=== PATIENT | female | born 1950 | race Caucasian/White ===

== ENCOUNTER → 2019-06-27 11:49 | Outpatient (BNVA) | payer MEDICARE, MEDICAID, SELFPAY | PROVIDERS: Family Provider Nurse Practitioner; PCP Nurse Practitioner; Visit Provider Nurse Practitioner | DX: E11.42 Type 2 diabetes mellitus with diabetic polyneuropathy (principal); E78.2 Mixed hyperlipidemia; F41.9 Anxiety disorder, unspecified; N18.3 Chronic kidney disease, stage 3 (moderate); G57.92 Unspecified mononeuropathy of left lower limb | CPT/HCPCS: 80053; 80069; 81003; 82044; 82306; 82570; 83036; 84156; 84443; 85025 ==

== ENCOUNTER → 2019-08-13 12:39 | Outpatient (BNVA) | payer MEDICARE, MEDICAID, SELFPAY | PROVIDERS: Family Provider Nurse Practitioner; PCP Nurse Practitioner; Visit Provider Nurse Practitioner | DX: F33.41 Major depressive disorder, recurrent, in partial remission (principal); F43.12 Post-traumatic stress disorder, chronic; F41.9 Anxiety disorder, unspecified | CPT/HCPCS: 99213 ==

== ENCOUNTER → 2019-09-26 14:30 | Outpatient (BNVA) | payer MEDICARE, MEDICAID, SELFPAY | PROVIDERS: Family Provider Nurse Practitioner; PCP Nurse Practitioner; Visit Provider Nurse Practitioner | DX: E78.2 Mixed hyperlipidemia (principal); E55.9 Vitamin D deficiency, unspecified; E11.42 Type 2 diabetes mellitus with diabetic polyneuropathy | CPT/HCPCS: 80053; 80061; 82306; 83036; 84443 ==

== ENCOUNTER → 2019-11-05 07:43 | Outpatient (BNVA) | payer MEDICARE, MEDICAID, SELFPAY | PROVIDERS: Family Provider Nurse Practitioner; PCP Nurse Practitioner; Visit Provider Nurse Practitioner | DX: F33.41 Major depressive disorder, recurrent, in partial remission (principal); F43.12 Post-traumatic stress disorder, chronic; F41.1 Generalized anxiety disorder | CPT/HCPCS: 99213 ==

== ENCOUNTER → 2019-12-05 10:23 | Outpatient (BNVA) | payer MEDICARE, MEDICAID, SELFPAY | PROVIDERS: Family Provider Nurse Practitioner; PCP Nurse Practitioner; Visit Provider Internal Medicine Nephrology | DX: N18.3 Chronic kidney disease, stage 3 (moderate) (principal); Z94.0 Kidney transplant status | CPT/HCPCS: 80069; 82306; 82310; 82570; 83970; 84156; 85025 ==

== ENCOUNTER → 2019-12-24 11:03 | Outpatient (BNVA) | payer MEDICARE, MEDICAID, SELFPAY | PROVIDERS: Family Provider Nurse Practitioner; PCP Nurse Practitioner; Visit Provider Nurse Practitioner | DX: E03.8 Other specified hypothyroidism (principal); E11.42 Type 2 diabetes mellitus with diabetic polyneuropathy; E78.2 Mixed hyperlipidemia; N18.3 Chronic kidney disease, stage 3 (moderate) | CPT/HCPCS: 80053; 83036; 84443 ==

== ENCOUNTER → 2019-12-26 15:25 | Outpatient (BNVA) | payer MEDICARE, MEDICAID, SELFPAY | PROVIDERS: Family Provider Nurse Practitioner; PCP Nurse Practitioner; Visit Provider Nurse Practitioner | DX: E11.42 Type 2 diabetes mellitus with diabetic polyneuropathy (principal); F41.9 Anxiety disorder, unspecified; E78.2 Mixed hyperlipidemia; E03.8 Other specified hypothyroidism; K21.9 Gastro-esophageal reflux disease without esophagitis | CPT/HCPCS: 81000 ==

== ENCOUNTER → 2020-01-29 08:33 | Outpatient (BNVA) | payer MEDICARE, MEDICAID, SELFPAY | PROVIDERS: Family Provider Nurse Practitioner; PCP Nurse Practitioner; Visit Provider Nurse Practitioner | DX: F43.12 Post-traumatic stress disorder, chronic (principal); F33.41 Major depressive disorder, recurrent, in partial remission | CPT/HCPCS: 99213 ==

== ENCOUNTER → 2020-03-19 11:15 | Outpatient (BNVA) | payer MEDICARE, MEDICAID, SELFPAY | PROVIDERS: Family Provider Nurse Practitioner; PCP Nurse Practitioner; Visit Provider Nurse Practitioner | DX: E11.65 Type 2 diabetes mellitus with hyperglycemia (principal); Z79.4 Long term (current) use of insulin; E03.8 Other specified hypothyroidism; E78.2 Mixed hyperlipidemia; E55.9 Vitamin D deficiency, unspecified; E11.22 Type 2 diabetes mellitus with diabetic chronic kidney disease; N18.30 Chronic kidney disease, stage 3 unspecified | CPT/HCPCS: 80053; 80061; 80069; 82306; 82310; 83036; 83970; 84443; 85025 ==

== ENCOUNTER → 2020-04-01 14:23 | Outpatient (BNVA) | payer MEDICARE, MEDICAID, SELFPAY | PROVIDERS: Family Provider Nurse Practitioner; PCP Nurse Practitioner; Visit Provider Nurse Practitioner Family | DX: E13.22 Other specified diabetes mellitus with diabetic chronic kidney disease; N18.30 Chronic kidney disease, stage 3 unspecified; E03.8 Other specified hypothyroidism; E11.65 Type 2 diabetes mellitus with hyperglycemia; E78.2 Mixed hyperlipidemia; Z79.4 Long term (current) use of insulin; E11.42 Type 2 diabetes mellitus with diabetic polyneuropathy; K21.9 Gastro-esophageal reflux disease without esophagitis; F41.9 Anxiety disorder, unspecified; E55.9 Vitamin D deficiency, unspecified; M62.838 Other muscle spasm; J30.89 Other allergic rhinitis; I12.9 Hypertensive chronic kidney disease with stage 1 through stage 4 chronic kidney disease, or unspecified chronic kidney disease | CPT/HCPCS: 80069; 81000; 82043; 82310; 83970; 85025 ==

== ENCOUNTER → 2020-04-21 14:44 | Outpatient (BNVA) | payer MEDICARE, MEDICAID, SELFPAY | PROVIDERS: Family Provider Nurse Practitioner; PCP Nurse Practitioner; Visit Provider Internal Medicine Nephrology | DX: N18.4 Chronic kidney disease, stage 4 (severe) (principal) | CPT/HCPCS: 80048 ==

== ENCOUNTER 2020-04-28 12:53 | Outpatient (CLI) | payer MEDICARE, MEDICAID, SELFPAY ==
--- NOTE | 2020-04-28 | CT_ITS ---
WS: [id number] CT ABDOMEN AND PELVIS NONCONTRAST HISTORY: CHRONIC KIDNEY DISEASE TECHNIQUE: Imaging performed through the abdomen and pelvis. Coronal and sagittal reformats are submi tted. All CT scans at [facility] use at least one of these dose optimization techniques: automated exposure control; mA and/or kV adjustment per patient size (includes targeted exams where d ose is matched to clinical indication); or iterative reconstruction. DLP: 1231.85 mGycm COMPARISON: 11/08/2017 Lower thorax: Lung bases are clear. Visualized heart is normal. No hiatal hernia. Liver: Mild hepatomegaly and mild hepatic steatosis. No mass or bile duct dilatation. Gallbladder: Prior cholecystectomy. Pancreas: Normal size and attenuation. Normal pancreatic duct. No pancreatitis or mass. Spleen: Normal size spleen with granulomata. Adrenal glands: Normal. No mass. Right kidney: Normal size kidney with no mass or hydronephrosis. Left kidney: Normal size kidney with no mass or hydronephrosis. Aorta: Very mild atherosclerosis. No aneurysm. No free fluid, intraperitoneal air or significant lymphadenopathy. GI tract: Prior appendectomy. No GI tract obstruction. There are a few skin diverticula in the sigmoi d colon without acute inflammation. No obstructive pattern. Abdominal wall: Negative. No hernia. Pelvis: Normal urinary bladder. No free fluid. Osseous structures: Degenerative disc disease is mild at L4-5. CT/CT kidney stone [id number] IMPRESSION: 1. No acute abdominal or pelvic abnormalities. 2. No renal obstruction. 3. Prior cholecystectomy and appendectomy. 4. Sigmoid diverticulosis without diverticulitis.
== END 2020-04-28 12:54 | disposition home or self-care (01) ==
LOC: RADWPI 12:57
PROVIDERS: PCP Nurse Practitioner; Visit Provider Registered Nurse
DX: N18.4 Chronic kidney disease, stage 4 (severe) (principal); K57.30 Diverticulosis of large intestine without perforation or abscess without bleeding; Z90.49 Acquired absence of other specified parts of digestive tract; Q42.8 Congenital absence, atresia and stenosis of other parts of large intestine
CPT/HCPCS: 74176

== ENCOUNTER → 2020-07-06 11:08 | Outpatient (BNVA) | payer MEDICARE, MEDICAID, SELFPAY | PROVIDERS: PCP Nurse Practitioner; Visit Provider Nurse Practitioner | DX: E78.5 Hyperlipidemia, unspecified (principal); E11.65 Type 2 diabetes mellitus with hyperglycemia; E03.8 Other specified hypothyroidism; E55.9 Vitamin D deficiency, unspecified; I10 Essential (primary) hypertension; Z79.4 Long term (current) use of insulin | CPT/HCPCS: 80053; 80061; 82306; 83036; 84443; 85025 ==

== ENCOUNTER → 2020-07-28 11:36 | Outpatient (BNVA) | payer MEDICARE, MEDICAID, SELFPAY | PROVIDERS: PCP Nurse Practitioner; Visit Provider Nurse Practitioner | DX: N18.4 Chronic kidney disease, stage 4 (severe) (principal) | CPT/HCPCS: 80069; 82043; 82306; 82310; 83970; 85025 ==

== ENCOUNTER → 2020-09-10 14:00 | Outpatient (BNVA) | payer MEDICARE, MEDICAID, SELFPAY | PROVIDERS: PCP Nurse Practitioner; Visit Provider Nurse Practitioner | DX: F41.9 Anxiety disorder, unspecified (principal); F33.41 Major depressive disorder, recurrent, in partial remission; F43.12 Post-traumatic stress disorder, chronic | CPT/HCPCS: 99214 ==

== ENCOUNTER → 2020-10-06 14:06 | Outpatient (BNVA) | payer MEDICARE, MEDICAID, SELFPAY | PROVIDERS: PCP Nurse Practitioner; Visit Provider Nurse Practitioner | DX: E11.42 Type 2 diabetes mellitus with diabetic polyneuropathy (principal); E11.65 Type 2 diabetes mellitus with hyperglycemia; I10 Essential (primary) hypertension; E55.9 Vitamin D deficiency, unspecified; J30.89 Other allergic rhinitis; E78.2 Mixed hyperlipidemia; E03.8 Other specified hypothyroidism; K21.9 Gastro-esophageal reflux disease without esophagitis; M62.838 Other muscle spasm; M25.512 Pain in left shoulder; Z79.4 Long term (current) use of insulin | CPT/HCPCS: 73030; 80053; 83036 ==

== ENCOUNTER 2020-10-26 16:33 | Observation (INO) | payer MEDICARE, MEDICAID, SELFPAY ==
[2020-10-26] VITALS (35 sets, daily range): BP systolic 131–182; BP diastolic 63–95; PULSE 66–123; RESP 17–29; TEMP 36.6–36.8; O2SAT 91–99; BMI 29.0
[2020-10-26 16:57] LABS: Glucose Point of Care 380 mg/dL (70-110)
--- NOTE | 2020-10-26 16:57 | XRR_ITS ---
PROCEDURE INFORMATION: Exam: XR Chest Exam date and time: 10/26/2020 5:06 PM Age: 69 years old Clinical indication: Dyspnea; Additional info: AMS TECHNIQUE: Imaging protocol: XR of the chest. Views: 1 view. COMPARISON: CR Chest 2 views* [id number] 12/02/2015 8:50 AM FINDINGS: Lungs: Lungs are clear. Pleural spaces: There is no pleural effusion or pneumothorax. Heart/Mediastinum: Unremarkable. No cardiomegaly. Bones/joints: Lower cervical fusion. There is no acute fracture. XR/XR chest 1V portable [id number] IMPRESSION: No acute findings.
--- NOTE | 2020-10-26 16:57 | CTR_ITS ---
PROCEDURE INFORMATION: Exam: CT Head Without Contrast Exam date and time: 10/26/2020 5:02 PM Age: 69 years old Clinical indication: Altered mental status/memory loss; Confusion or disorientation; Additional info: AMS TECHNIQUE: Imaging protocol: Computed tomography of the head without contrast. Radiation optimization: All CT scans at this facility use at least one of these dose optimization techniques: automated exposure control; mA and/or kV adjustment per patient size (includes targeted exams where dose is matched to clinical indication); or iterative reconstruction. COMPARISON: CT head wo con* [id number] 11/08/2017 6:44 PM RADIATION DOSE METRICS: Total DLP (mGy-cm): 756.3 FINDINGS: Brain: There is mild diffuse cerebral atrophy. There is no significant mass effect or midline shift. There is no acute intracranial hemorrhage. Cerebral ventricles: There is mild ex vacuo dilation of the lateral ventricles. The basal cisterns are unremarkable. Paranasal sinuses: The paranasal sinuses are clear. Mastoid air cells: The mastoid air cells are clear. Bones/joints: The calvarium is intact. Soft tissues: The visible extracranial soft tissues are unremarkable. CT/CT head wo con* [id number] IMPRESSION: No acute findings. Radiation Dose CTDIVOL = (mGy): DLP = 756.3 (mGy-cm)
--- NOTE | 2020-10-26 17:08 | W.ED.AMS ---
HPI - Altered Mental Status General: Chief Complaint: Nausea/Vomiting/Diarrhea Stated Complaint: AMS,N/V, Fever/Chills Time Seen by Provider: 10/26/20 16:46 Source: patient and family (daughter) Mode of arrival: ambulatory Limitations: altered mental status History of Present Illness: HPI narrative: The patient was brought in by her daughter with complaints of altered mental status. The patient is very confused and is unable to answer any of my questions. Her daughter says she last saw her 2 days ago and at that time she had a fever and was vomiting and was not her usual self. She gave her some food and has not seen her since then. Today the patient's cleaning lady went to her home and noted that the patient was completely confused and altered and took her to the EMS station from where she was brought to the hospital. Patient's daughter does not know if she has been taking her insulin and does not know if she has been taking her other medications. complaint: altered mental status Onset (ago): unknown (last known well 2 days ago) Timing confirmed by: family member and caregiver Severity: severe Consistency of symptoms: Getting Worse Review of Systems General: Reports: ROS unobtainable due to mental status PFSH ED PFSH: Medical History Acid reflux Adult onset hypothyroidism Anxiety disorder, unspecified Bilateral bunions Chronic kidney disease, stage 4 (severe) Enrolled in chronic care management Environmental and seasonal allergies Essential hypertension History of cataract Bilateral History of mammogram yearly Kidney disease, chronic, stage III (moderate, EGFR 30-59 ml/min) Major depressive disorder, recurrent, in partial remission Mixed hyperlipidemia Myalgia Nerve damage of left foot Post-traumatic stress disorder, chronic PVD (peripheral vascular disease) Secondary DM with CKD stage 3 and hypertension Sleep apnea 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 Surgical History History of back surgery Fusion 2009 Lumbar 4-5 History of cholecystectomy 1970 History of colonoscopy 2016 History of hysterectomy 1978 with BSO History of knee surgery Right History of lumpectomy of right breast 2000 History of neck surgery 1979 and 1980 both Family History Mother Cancer cervical, melanoma, breast cancer Lung disease Sister Cancer Breast Diabetes Father Diabetes Hypertension Lung disease Denies family history of CAD (coronary artery disease) Clotting disorder Dementia Hyperlipidemia Psychiatric illness Chronic kidney disease (CKD) Suicide Anesthesia complication Bleeding disorder Family history of premature coronary artery disease Stroke Social History Smoking and tobacco status: never smoked Second hand smoke exposure: No Smoking risk assessment/counseling performed?: Yes Alcohol intake: former Desire information about alcohol rehabilitation?: No Counseling given: No Desire information about substance/drug rehabilitation?: No Counseling given: No Adopted: No Caregiver/support person: No Lives independently: Yes Household members: none Housing: House Marital status: / Number of children: 4 Number of grandchildren: 7 service: No Current occupational status: unemployed Pets and animals: Yes Pets & animals: cat(s) and dog(s) History of recent travel: No Physical Exam Const: COMMON NORMALS: no acute distress, average body habitus, no limitations, healthy appearing, alert and well nourished ORIENTATION/CONSCIOUSNESS: Yes oriented to person HENMT: COMMON NORMALS: normocephalic and atraumatic HEAD & SCALP: normocephalic and atraumatic MOUTH: moist mucous membranes abnormal Details: parched Neck/C-Spine: COMMON NORMALS: no meningeal signs and no JVD Resp: COMMON NORMALS: normal respiratory effort, No retractions, No use of accessory muscles, clear to auscultation bilaterally and percussion normal AUSCULTATION: clear to auscultation bilaterally PERCUSSION: percussion normal Cardio: COMMON NORMALS: no JVD, regular rate, regular rhythm, S1 normal heart sound present, S2 normal heart sound present, No gallops present (Cardio), No clicks present (Cardio), No murmurs present (Cardio), No rub (Cardio) and Peripheral pulses 2+ throughout RATE: regular rate RHYTHM: regular rhythm HEART SOUNDS: S1 normal heart sound present and S2 normal heart sound present PERIPHERAL PULSES: Peripheral pulses 2+ throughout GI: COMMON NORMALS: Normal to inspection, nondistended, normoactive bowel sounds present, Soft to palpation, No hepatosplenomegaly present, no masses and no bruits PALPATION: Yes Soft to palpation, Yes Tenderness to palpation present (GI) (generalized tenderness) and Yes No hepatosplenomegaly present Extremity: COMMON NORMALS: normal to inspection, full ROM, capillary refill normal, no calf tenderness and no pedal edema Neuro: SENSORIUM/ORIENTATION: Yes alert and Yes oriented to person MENINGEAL SIGNS: Yes no meningeal signs Skin: COMMON NORMALS: no rashes or lesions noted, no wounds, no jaundice, no petechiae and no mottling GENERAL SKIN EXAM: no rashes or lesions noted and dry skin Course Reevaluation(s): Reevaluation #1: Discussed her lab and imaging findings with the patient and her daughter. Explained that the patient is in DKA and will need admission to the hospital. Daughter voiced understanding and is in agreement with the plan. The patient says she would like to be discharged home, complained that she is just very thirsty. She eventually agreed to staying after I explained to her the dangers of being discharged in her current condition. Time: 19:15 Consultations: Consultation #1: Discussed the patient with Dr. Cordova, hospitalist and he kindly accepted the patient to his service. Time: 19:29 Vital Signs: Vital signs: Vital Signs Temperature 98.3 F 10/26/20 21:32 Pulse Rate 79 10/26/20 21:32 Respiratory Rate 19 H 10/26/20 21:32 Blood Pressure 167/82 10/26/20 21:32 Pulse Oximetry 97 10/26/20 21:32 MDM - Altered Mental Status MDM Narrative: Medical decision making narrative: 69-year-old female patient who presented to the emergency department with altered mental status. She was very confused on arrival to the emergency department, however her mental status improved prior to admission. In the emergency department she was noted to be in DKA, increased anion gap, ketones in the serum, low CO2 on lab work. She also has hyperglycemia. She was also noted to have acute pancreatitis, elevated lactic acid. She is admitted to the ICU for further evaluation and management. Medical Records: Attestation: I reviewed the patient's medical records. Lab Data: Attestation: I reviewed the patient's lab results. Labs: Lab Results 10/26/20 10/26/20 10/26/20 Range/Units 16:54 17:17 17:25 WBC 5.0 (4.0-10.0) 10^3/ uL RBC 5.22 (4.1-5.3) 10^6/u L Hgb 14.8 (11.5-15.3) g/dL Hct 45.0 (37.0-47.0) % MCV 86.2 (81-99) fL MCH 28.4 (28.0-34.0) pg MCHC 32.9 (30.0-36.0) g/dL RDW 13.2 (12.1-15.1) % Plt Count 218 (130-400) 10^3/c mm MPV 10.6 H (7.4-10.4) fL Neut % (Auto) 59.9 % Lymph % (Auto) 29.4 % [place] % (Auto) 9.1 % Eos % (Auto) 0.0 % Baso % (Auto) 0.8 % Neut # (Auto) 2.97 (1.8-7.7) 10^3/u L Lymph # (Auto) 1.5 (0.8-4.8) 10^3/u L [place] # (Auto) 0.5 (0.2-0.9) 10^3/u L Eos # (Auto) 0.0 (0.0-0.8) 10^3/u L Baso # (Auto) 0.0 (0.0-0.1) 10^3/u L Nucleated RBC % (a uto) 0 % Nucleated RBCs # 0.0 /100WBC Specimen Type Arterial Sample Site Radial, left ABG pH 7.38 (7.35-7.45) ABG pCO2 26.9 L (35-45) mmHg ABG pO2 86.2 (80.0-100.0) mmH g ABG HCO3 16.0 L (22-26) mmol/L ABG Base Excess -7.4 L (-2.0-2.0) mmol/ L Isaias Test Pos Hematocrit 45.8 (37-47) % O2 Delivery Device Room air FiO2 21.0 % Academic Program Specialist ID Cak Sodium Potassium Chloride Carbon Dioxide Anion Gap BUN Creatinine GFR Calculation Glucose POC Glucose 380 H (70-110) mg/dL Calculated Osmolal ity Lactate Calcium Total Bilirubin AST ALT Alkaline Phosphata se Creatine Kinase C-Reactive Protein Total Protein Albumin Globulin Triglycerides (0-150) mg/dL LDL Cholesterol Di rect (0-100) mg/dL Lipase Procalcitonin TSH Serum Ketones SARS-CoV-2 Ag (Rap id) (Negative) 10/26/20 10/26/20 10/26/20 Range/Units 17:25 17:25 17:25 WBC (4.0-10.0) 10^3/ uL RBC (4.1-5.3) 10^6/u L Hgb (11.5-15.3) g/dL Hct (37.0-47.0) % MCV (81-99) fL MCH (28.0-34.0) pg MCHC (30.0-36.0) g/dL RDW (12.1-15.1) % Plt Count (130-400) 10^3/c mm MPV (7.4-10.4) fL Neut % (Auto) % Lymph % (Auto) % [place] % (Auto) % Eos % (Auto) % Baso % (Auto) % Neut # (Auto) (1.8-7.7) 10^3/u L Lymph # (Auto) (0.8-4.8) 10^3/u L [place] # (Auto) (0.2-0.9) 10^3/u L Eos # (Auto) (0.0-0.8) 10^3/u L Baso # (Auto) (0.0-0.1) 10^3/u L Nucleated RBC % (a uto) % Nucleated RBCs # /100WBC Specimen Type Sample Site ABG pH (7.35-7.45) ABG pCO2 (35-45) mmHg ABG pO2 (80.0-100.0) mmH g ABG HCO3 (22-26) mmol/L ABG Base Excess (-2.0-2.0) mmol/ L Isaias Test Hematocrit (37-47) % O2 Delivery Device FiO2 % Academic Program Specialist ID Sodium Cancelled Potassium Cancelled Chloride Cancelled Carbon Dioxide Cancelled Anion Gap Cancelled BUN Cancelled Creatinine Cancelled GFR Calculation Cancelled Glucose Cancelled POC Glucose (70-110) mg/dL Calculated Osmolal ity Cancelled Lactate Cancelled Calcium Cancelled Total Bilirubin Cancelled AST Cancelled ALT Cancelled Alkaline Phosphata se Cancelled Creatine Kinase Cancelled C-Reactive Protein Cancelled Total Protein Cancelled Albumin Cancelled Globulin Cancelled Triglycerides (0-150) mg/dL LDL Cholesterol Di rect (0-100) mg/dL Lipase Cancelled Procalcitonin Cancelled TSH Cancelled Serum Ketones Cancelled SARS-CoV-2 Ag (Rap id) (Negative) 10/26/20 10/26/20 10/26/20 Range/Units 17:25 18:30 18:30 WBC (4.0-10.0) 10^3/ uL RBC (4.1-5.3) 10^6/u L Hgb (11.5-15.3) g/dL Hct (37.0-47.0) % MCV (81-99) fL MCH (28.0-34.0) pg MCHC (30.0-36.0) g/dL RDW (12.1-15.1) % Plt Count (130-400) 10^3/c mm MPV (7.4-10.4) fL Neut % (Auto) % Lymph % (Auto) % [place] % (Auto) % Eos % (Auto) % Baso % (Auto) % Neut # (Auto) (1.8-7.7) 10^3/u L Lymph # (Auto) (0.8-4.8) 10^3/u L [place] # (Auto) (0.2-0.9) 10^3/u L Eos # (Auto) (0.0-0.8) 10^3/u L Baso # (Auto) (0.0-0.1) 10^3/u L Nucleated RBC % (a uto) % Nucleated RBCs # /100WBC Specimen Type Sample Site ABG pH (7.35-7.45) ABG pCO2 (35-45) mmHg ABG pO2 (80.0-100.0) mmH g ABG HCO3 (22-26) mmol/L ABG Base Excess (-2.0-2.0) mmol/ L Isaias Test Hematocrit (37-47) % O2 Delivery Device FiO2 % Academic Program Specialist ID Sodium Potassium Chloride Carbon Dioxide Anion Gap BUN Creatinine GFR Calculation Glucose POC Glucose (70-110) mg/dL Calculated Osmolal ity Lactate 2.7 H Calcium Total Bilirubin AST ALT Alkaline Phosphata se Creatine Kinase C-Reactive Protein Total Protein Albumin Globulin Triglycerides (0-150) mg/dL LDL Cholesterol Di rect (0-100) mg/dL Lipase Procalcitonin TSH Serum Ketones Positive H SARS-CoV-2 Ag (Rap id) Negative (Negative) 10/26/20 10/26/20 Range/Units 18:30 18:30 WBC (4.0-10.0) 10^3/ uL RBC (4.1-5.3) 10^6/u L Hgb (11.5-15.3) g/dL Hct (37.0-47.0) % MCV (81-99) fL MCH (28.0-34.0) pg MCHC (30.0-36.0) g/dL RDW (12.1-15.1) % Plt Count (130-400) 10^3/c mm MPV (7.4-10.4) fL Neut % (Auto) % Lymph % (Auto) % [place] % (Auto) % Eos % (Auto) % Baso % (Auto) % Neut # (Auto) (1.8-7.7) 10^3/u L Lymph # (Auto) (0.8-4.8) 10^3/u L [place] # (Auto) (0.2-0.9) 10^3/u L Eos # (Auto) (0.0-0.8) 10^3/u L Baso # (Auto) (0.0-0.1) 10^3/u L Nucleated RBC % (a uto) % Nucleated RBCs # /100WBC Specimen Type Sample Site ABG pH (7.35-7.45) ABG pCO2 (35-45) mmHg ABG pO2 (80.0-100.0) mmH g ABG HCO3 (22-26) mmol/L ABG Base Excess (-2.0-2.0) mmol/ L Isaias Test Hematocrit (37-47) % O2 Delivery Device FiO2 % Academic Program Specialist ID Sodium 140 Potassium 4.1 Chloride 97 L Carbon Dioxide 18 L Anion Gap 29.1 H BUN 40 H Creatinine 1.5 H GFR Calculation 34.4 L Glucose 365 H POC Glucose (70-110) mg/dL Calculated Osmolal ity 315 H Lactate Calcium 9.2 Total Bilirubin 0.5 AST 28 ALT 21 Alkaline Phosphata se 41 Creatine Kinase 64 C-Reactive Protein 86.8 H Total Protein 7.6 Albumin 4.0 Globulin 3.6 Triglycerides 470 H (0-150) mg/dL LDL Cholesterol Di rect 95 (0-100) mg/dL Lipase 770 H Procalcitonin 0.67 H TSH 0.32 Serum Ketones SARS-CoV-2 Ag (Rap id) (Negative) Imaging Data^: CT Abd/Pel: Attestation: I personally reviewed and interpreted this imaging study as follows: Radiologist's impression: [address] [id number] Scan ReportSigned Patient: Justyna Sánchez #: [id number]: 1950cct#:[id number]/Sex: 69 / FADM Date: 10/26/20Loc: ICURoom/Bed: [address]: Ángel Cordova MD Ordering Provider/Ordering MD: Ros Reyes MD, [facility] [place] Date of Service: 10/26/20 Procedure(s): CT abdomen pelvis w con* [id number] Accession Number(s): [id number] Report Number: [id number] PROCEDURE INFORMATION: Exam: CT Abdomen And Pelvis With Contrast Exam date and time: 10/26/2020 7:59 PM Age: 69 years old Clinical indication: Abdominal pain; Generalized TECHNIQUE: Imaging protocol: Computed tomography of the abdomen and pelvis with contrast. Radiation optimization: All CT scans at this facility use at least one of these dose optimization techniques: automated exposure control; mA and/or kV adjustment per patient size (includes targeted exams where dose is matched to clinical indication); or iterative reconstruction. Contrast material: VISI 320; Contrast volume: 95 ml; Contrast route: INTRAVENOUS (IV); COMPARISON: CT abdomen pelvis con [id number] 11/08/2017 6:57 PM RADIATION DOSE METRICS: Total DLP (mGy-cm): 1785.62 FINDINGS: Lungs: Lung bases are clear. Liver: The liver is normal. Gallbladder and bile ducts: The gallbladder is absent. There is no intrahepatic or extrahepatic bile duct dilation. Pancreas: The pancreas is unremarkable. Spleen: The spleen is unremarkable. Adrenal glands: The adrenal glands are unremarkable. Kidneys and ureters: There is no hydronephrosis or stones. Stomach and bowel: The stomach is unremarkable. The small bowel is nondilated. There is mild sigmoid colonic diverticulosis without evidence of diverticulitis. Appendix: The appendix is not visible. Intraperitoneal space: There is no free air or significant intraperitoneal free fluid. Vasculature: There is mild aortic atherosclerotic disease. The portal, splenic and superior mesenteric veins are patent. Lymph nodes: There is no lymphadenopathy in the retroperitoneum, mesentery, pelvis or inguinal regions. Urinary bladder: The urinary bladder is unremarkable. Reproductive: The uterus is absent. There is no adnexal mass or large cyst. Bones/joints: There is mild degenerative disease in the lower lumbar spine. The pelvis and proximal femora are intact. Soft tissues: The abdominal wall is intact. CT/CT abdomen pelvis w con* [id number] IMPRESSION: 1. No acute findings. 2. Incidental findings above. Radiation Dose CTDIVOL = (mGy): DLP = 1785.62 (mGy-cm) Dictated By:Monico Guzman MDSigned By:Monico Guzman MDSigned Date/Time:10/26/202038DD/ 37 CXR: Attestation: I personally reviewed and interpreted this imaging study as follows: Radiologist's impression: [address] [id number] ReportSigned Patient: Justyna Sánchez #: [id number]: 1950cct#:[id number]/Sex: 69 / FADM Date: 10/26/20Loc: ERRoom/Bed:Attending Dr: Ordering Provider/Ordering MD: Ros Reyes MD, [facility] [place] Date of Service: 10/26/20 Procedure(s): XR chest 1V portable [id number] Accession Number(s): [id number] Report Number: [id number] PROCEDURE INFORMATION: Exam: XR Chest Exam date and time: 10/26/2020 5:06 PM Age: 69 years old Clinical indication: Dyspnea; Additional info: AMS TECHNIQUE: Imaging protocol: XR of the chest. Views: 1 view. COMPARISON: CR Chest 2 views* [id number] 12/02/2015 8:50 AM FINDINGS: Lungs: Lungs are clear. Pleural spaces: There is no pleural effusion or pneumothorax. Heart/Mediastinum: Unremarkable. No cardiomegaly. Bones/joints: Lower cervical fusion. There is no acute fracture. XR/XR chest 1V portable [id number] IMPRESSION: No acute findings. Dictated By:Monico Guzman MDSigned By:Monico Guzman MDSigned Date/Time:10/26/201745DD/ 43 CT Head: Attestation: I personally reviewed and interpreted this imaging study as follows: Radiologist's impression: [address], [place] [address]PW Scan ReportSigned Patient: Justyna Sánchez #: [id number]: 1950cct#:[id number]/Sex: 69 / FADM Date: 10/26/20Loc: ERRoom/Bed:Attending Dr: Ordering Provider/Ordering MD: Ros Reyes MD, [facility] Date of Service: 10/26/20 Procedure(s): CT head wo con* [id number] Accession Number(s): [id number] Report Number: [id number] PROCEDURE INFORMATION: Exam: CT Head Without Contrast Exam date and time: 10/26/2020 5:02 PM Age: 69 years old Clinical indication: Altered mental status/memory loss; Confusion or disorientation; Additional info: AMS TECHNIQUE: Imaging protocol: Computed tomography of the head without contrast. Radiation optimization: All CT scans at this facility use at least one of these dose optimization techniques: automated exposure control; mA and/or kV adjustment per patient size (includes targeted exams where dose is matched to clinical indication); or iterative reconstruction. COMPARISON: CT head wo con* [id number] 11/08/2017 6:44 PM RADIATION DOSE METRICS: Total DLP (mGy-cm): 756.3 FINDINGS: Brain: There is mild diffuse cerebral atrophy. There is no significant mass effect or midline shift. There is no acute intracranial hemorrhage. Cerebral ventricles: There is mild ex vacuo dilation of the lateral ventricles. The basal cisterns are unremarkable. Paranasal sinuses: The paranasal sinuses are clear. Mastoid air cells: The mastoid air cells are clear. Bones/joints: The calvarium is intact. Soft tissues: The visible extracranial soft tissues are unremarkable. CT/CT head wo con* [id number] IMPRESSION: No acute findings. Radiation Dose CTDIVOL = (mGy): DLP = 756.3 (mGy-cm) Dictated By:Monico Guzmanigned By:Monico Guzmanigned Date/Time:10/26/20 1744DD/ 1743 EKG Data^: EKG 1: Attestation: I personally reviewed and interpreted this EKG as follows: EKG interpretation date: 10/26/20 EKG interpretation time: 17:46 Prior EKG tracings: not available for review Interpretation: Sinus rhythm. Heart rate 84 bpm. Normal axis. No ST changes. Critical Care Time Critical Care Time: Critical Care Time: Yes Total Critical Care Time: 60 Attestation: This case had a high probability of a clinically significant, sudden, or life threatening deterioration of this patient's condition which required my full and direct attention, intervention and personal management. Discharge Plan Discharge Patient Disposition: Admitted As Inpatient Admit Provider: Ángel Cordova Clinical Impression: Acute metabolic encephalopathy, Acidosis, lactic DKA (diabetic ketoacidoses) Qualifiers: Diabetes mellitus type: type 2 Diabetes mellitus complication detail: without coma Qualified Code(s): E11.10 - Type 2 diabetes mellitus with ketoacidosis without coma Acute pancreatitis Qualifiers: Pancreatitis type: unspecified pancreatitis type Acute pancreatitis complication: no infection or necrosis Qualified Code(s): K85.90 - Acute pancreatitis without necrosis or infection, unspecified Condition: Stable Coding Level of Care Code ED Mold Filler And Drainer for g Fwd Exam Comprehensive
[2020-10-26 17:28] LABS: ABG PCO2 26.9 mmHg (35-45); ABG PH Result 7.38 (7.35-7.45); Arterial Blood Gas Hematocrit 45.8 % (37-47); Base Excess ABG -7.4 mmol/L (-2.0-2.0); Blood Gas Allen Test Pos; Blood Gas Operator Identificat CAK; Blood Gas Sample Site Radial, left; Blood Gas Sample Type Arterial; Oxygen Device ROOM AIR; PO2 ABG 86.2 mmHg (80.0-100.0)
[2020-10-26 17:34] LABS: Basophils % 0.8 %; Hemoglobin 14.8 g/dL (11.5-15.3); Lymphocytes # 1.5 10^3/uL (0.8-4.8); Lymphocytes % 29.4 %; Mean Corpuscular HGB Conc 32.9 g/dL (30.0-36.0); Mean Corpuscular Hemoglobin 28.4 pg (28.0-34.0); Mean Corpuscular Volume 86.2 fL (81-99); Mean Platelet Volume 10.6 fL (7.4-10.4); Monocytes # 0.5 10^3/uL (0.2-0.9); Monocytes % 9.1 %; Neutrophils # 2.97 10^3/uL (1.8-7.7); Neutrophils % 59.9 %; Nucleated Red Blood Cells % 0 %; Platelet Count 218 10^3/cmm (130-400); Red Blood Count 5.22 10^6/uL (4.1-5.3); Red Cell Distribution Width 13.2 % (12.1-15.1)
[2020-10-26 17:51] LABS: SARS Covid-2 Antigen Negative (Negative)
[2020-10-26 18:53] LABS: Ketone (Acetest) Serum Positive (Negative)
[2020-10-26 19:03] LABS: Lactate (Lactic Acid level) 2.7 mmol/L (0.5-2.2)
[2020-10-26] MEDS: sodium chloride 0.9% 1,000 ML 999 ML IV ×2 (19:04→22:10)
[2020-10-26 19:11] LABS: Procalcitonin 0.67 ng/mL (0-0.5); Thyroid Stimulating Hormone 0.32 uIU/mL (0.27-4.20)
[2020-10-26 19:22] LABS: Alanine Aminotransferase 21 U/L (0-33); Alkaline Phosphatase 41 IU/L (35-105); Anion Gap 29.1 (5-19); Aspartate Amino Transferase 28 U/L (0-32); Blood Urea Nitrogen 40 mg/dL (8-23); C Reactive Protein 86.8 mg/L (0.0-4.9); Calcium 9.2 mg/dL (8.5-10.5); Carbon Dioxide 18 mmol/L (22-29); Chloride 97 mmol/L (98-107); Creatine Phosphokinase 64 U/L (26-192); Globulin 3.6 g/dL (1.3-4.6); Glomerular Filtration Rate 34.4 mL/min (90-130); Glucose 365 mg/dL (65-115); Osmolality Calculated 315 mOsm/kg (285-295); Potassium 4.1 mmol/L (3.5-5.1); Sodium 140 mmol/L (136-145); Total Bilirubin 0.5 mg/dL (0.15-1.2); Total Protein 7.6 g/dL (6.6-8.7)
--- NOTE | 2020-10-26 19:30 | P.HP_ITS ---
Providers/Chief Complaint Primary Care Provider: BEBE Telles Chief Complaint: AMS,N/V, Fever/Chills History of Present Illness Justyna Sánchez is a 69 year old female who has history of multiple comorbid condition, type 2 diabetes, lives alone, was brought in by the family because of her altered mental status and hyperglycemia. Daughter is at the bedside who is endorsing that on Monday her mother called her to ask about Sprite because she was not feeling well, which she described as nausea, vomiting and lethargy. Today when house cleaning lady checked on her, Ms. Sánchez was not oriented at all, hence was transferred to the ED for further evaluation. Patient is stating that she has not been feeling well for last few days, she suffered 2-3 episode of emesis, she is denying abdominal pain, chest pain, shortness of breath, dysuria. She skipped her long-acting insulin dose yesterday otherwise home health nurse manages her medications. She is a poor historian, most of the information has been given by her daughter. No strokelike symptoms were noted at home, no motor weakness, recent falls. Diagnostics in the ER revealed positive ketones, hyperglycemia, lactic acid 2.7, bicarb 18 however ABG shows low normal pH, lipase 770, triglyceride 470, procalcitonin 0.6, CT abdomen pelvis unremarkable, UA unremarkable with positive ketones Review of Systems Const: Reports: chills, body aches and fatigue; Denies: fever(s) Eyes: Denies: change in vision ENMT: Denies: throat pain Card: Denies: chest pain Resp: Reports: dyspnea GI: Reports: abdominal pain, nausea and vomiting : Denies: flank pain Musc: Denies: neck pain Skin/Breast: Denies: rash Neuro: Reports: confusion; Denies: headache(s) Psych: Reports: anxiety Endo: Denies: polyuria Darnell/Lymph: Denies: easy bruising All/Imm: Reports: urticaria Medications/Allergies Home Medications Medication Instructions Recorded Confirmed Last Taken Type mupirocin calcium 2 % topical cream 1 applic TOPICAL TID 06/11/19 10/26/20 Unknown History pen needle, diabetic 31 gauge x #150 ea 07/13/20 10/26/20 Unknown Rx 08/11 diclofenac sodium 1 % topical gel 2 g TOPICAL QID #100 g 07/21/20 10/26/20 Unknown Rx blood sugar diagnostic #100 ea 07/28/20 10/26/20 Unknown Rx lancets 33 gauge #100 ea 07/28/20 10/26/20 Unknown Rx blood-glucose meter #1 ea 07/29/20 10/26/20 Unknown Rx duloxetine 60 mg capsule,delayed 60 mg PO BID #60 cap 09/10/20 10/26/20 10/24/20 Rx release amlodipine 5 mg tablet 5 mg PO DAILY #30 tab 10/06/20 10/26/20 10/24/20 Rx insulin aspart U-100 100 unit/mL 3 - 24 unit SUBCUT TID #15 ml 10/06/20 10/26/20 10/26/20 Rx (3 mL) subcutaneous pen levocetirizine 5 mg tablet 5 mg PO DAILY #30 tab 10/06/20 10/26/20 10/24/20 Rx levothyroxine 88 mcg tablet 88 mcg PO DAILY #30 tab 10/06/20 10/26/20 10/24/20 Rx sucralfate 1 gram tablet 1 g PO BID #60 tab 10/06/20 10/26/20 10/24/20 Rx Lyrica 300 mg capsule 300 mg PO BID 30 Days #60 cap NS 10/22/20 10/26/20 10/24/20 Rx fenofibrate nanocrystallized 145 145 mg PO DAILY #30 tab 10/22/20 10/26/20 10/24/20 Rx mg tablet tizanidine 4 mg tablet 4 mg PO BID PRN #60 tab 10/22/20 10/26/20 Unknown Rx zonisamide 50 mg capsule 50 mg PO BID #60 cap 10/22/20 10/26/20 10/24/20 Rx Seroquel 100 mg PO BEDTIME 10/26/20 10/26/20 10/24/20 History ergocalciferol (vitamin D2) 1,250 mcg PO Q14D 10/26/20 10/26/20 10/11/20 History insulin detemir U-100 [Levemir 50 unit SUBCUT DAILY 10/26/20 10/26/20 Unknown History FlexTouch U-100 Insuln] liraglutide [Victoza 3-Kris] 1.8 mg SUBCUT DAILY 10/26/20 10/26/20 Unknown H istory metoprolol succinate 100 mg PO BEDTIME 10/26/20 10/26/20 10/24/20 History Allergies Allergy/AdvReac Type Severity Reaction Status Date / Time codeine Allergy Severe Unconscious Verified 07/21/20 11:13 meperidine [From Demerol] Allergy Mild Unknown Verified 07/21/20 11:13 Opioids - Morphine Analogues Allergy Mild Unknown Verified 07/21/20 11:13 penicillin G Allergy Mild ALGY-Rash Verified 07/21/20 11:13 Sulfa (Sulfonamide Allergy Unknown Unknown Verified 07/21/20 11:13 Antibiotics) PFSH Acute PFSH: Medical History Acid reflux Adult onset hypothyroidism Anxiety disorder, unspecified Bilateral bunions Chronic kidney disease, stage 4 (severe) Enrolled in chronic care management Environmental and seasonal allergies Essential hypertension History of cataract Bilateral History of mammogram yearly Kidney disease, chronic, stage III (moderate, EGFR 30-59 ml/min) Major depressive disorder, recurrent, in partial remission Mixed hyperlipidemia Myalgia Nerve damage of left foot Post-traumatic stress disorder, chronic PVD (peripheral vascular disease) Secondary DM with CKD stage 3 and hypertension Sleep apnea 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 Surgical History History of back surgery Fusion 2009 Lumbar 4-5 History of cholecystectomy 1970 History of colonoscopy 2016 History of hysterectomy 1979 with BSO History of knee surgery Right History of lumpectomy of right breast 2000 History of neck surgery 1979 and 1980 both Family History Mother Cancer cervical, melanoma, breast cancer Lung disease Sister Cancer Breast Diabetes Father Diabetes Hypertension Lung disease Denies family history of CAD (coronary artery disease) Clotting disorder Dementia Hyperlipidemia Psychiatric illness Chronic kidney disease (CKD) Suicide Anesthesia complication Bleeding disorder Family history of premature coronary artery disease Stroke Social History Smoking and tobacco status: never smoked Second hand smoke exposure: No Smoking risk assessment/counseling performed?: Yes Alcohol intake: former Desire information about alcohol rehabilitation?: No Counseling given: No Desire information about substance/drug rehabilitation?: No Counseling given: No Adopted: No Caregiver/support person: No Lives independently: Yes Household members: none Housing: House Marital status: / Number of children: 4 Number of grandchildren: 7 service: No Current occupational status: unemployed Pets and animals: Yes Pets & animals: cat(s) and dog(s) History of recent travel: No Vitals/I&O/Wt Last Vital Signs Temp 98.3 F 10/26/20 19:00 Pulse 92 10/26/20 19:00 Resp 18 10/26/20 19:00 BP 158/77 10/26/20 19:00 Pulse Ox 95 10/26/20 19:00 Weight last 48 hrs Weight 81.647 kg Physical Exam Narrative: EXAM NARRATIVE: Very pleasant elderly female Per daughter at the bedside Patient is stating that she would like to go home but agreeable to stay after we had discussion about her diagnosis and why it need ICU management S1, S2 sinus tachycardia no signs of heart failure or murmur Abdomen mild tenderness in mid epigastric region otherwise soft no signs of peritonitis Lower extremity no edema gangrene or ulcer however multiple cat and dog scratch rainey, no active sign of cellulitis EOMI, PERRLA No neurological deficit Appears anxious No acute respite distress saturating well on room air Data : 10/26/20 17:25 10/26/20 18:30 A&P Assessment and plan (1) DKA (diabetic ketoacidoses): Status: Acute (2) Myalgia: Status: Chronic (3) Essential hypertension: Status: Chronic (4) Diabetes mellitus with hyperglycemia, with long-term current use of insulin: Status: Chronic Qualifiers: Diabetes mellitus type: type 2 Qualified Code(s): E11.65 - Type 2 diabetes mellitus with hyperglycemia; Z79.4 - exterminator helper termite (current) use of insulin (5) Sleep apnea: Status: Acute (6) Anxiety disorder, unspecified: Status: Chronic Qualifiers: Anxiety disorder type: unspecified anxiety disorder Qualified Code(s): F41.9 - Anxiety disorder, unspecified (7) Diabetic peripheral neuropathy associated with type 2 diabetes mellitus: Status: Chronic Additional A&P Information Mild DKA Positive ketones hyperglycemia positive anion gap, lactic acidemia however ABG shows normal pH but her bicarb is low Start insulin I would add normal saline with potassium supplementation DKA protocol This most likely is related to poor compliance with her medications, patient is not sure about her medications mostly her medications are managed by home health nurse, she will need IV insulin for hypertriglyceridemia as well, her lipase is high however CT abdomen did not show acute pancreatitis We will keep her n.p.o. and start her consistent carb diet once anion gap is closed I will reduce her long-acting insulin dose to 40 units at home she uses detemir 50 units, check A1c level Myalgias secondary to DKA No active source of infection UA unremarkable No sign of cellulitis around cat and dog scratch rainey Hypothyroidism: Continue levothyroxine 88 mcg N.p.o. Goals of care discussed with the patient in front of her daughter, she wishes to stay DNR/DNI DVT prophylaxis Heparin, she has history of chronic kidney disease Attestations Medical Necessity Statement*: Anticipating stay in the hospital cross more t garcia 2 midnights for management of DKA Time Spent in Patient Care: (>than 50% of time spent in counselling and/or direct pt care on unit) . 35mins Coding Level of Care Code Acute Power Operator for g Fwd Diagnoses DKA (diabetic ketoacidoses) E11.10 Myalgia M79.10 Essential hypertension I10 Diabetes mellitus with hyperglycemia, with long-term current use of insulin E11.65; Z79.4 Diabetes mellitus type: type 2 Sleep apnea G47.30 Anxiety disorder, unspecified F41.9 Anxiety disorder type: unspecified anxiety disorder Diabetic peripheral neuropathy associated with type 2 diabetes mellitus E11.42
[2020-10-26 19:33] LABS: Lipase 770 U/L (13-60)
--- NOTE | 2020-10-26 19:43 | CTR_ITS ---
PROCEDURE INFORMATION: Exam: CT Abdomen And Pelvis With Contrast Exam date and time: 10/26/2020 7:59 PM Age: 69 years old Clinical indication: Abdominal pain; Generalized TECHNIQUE: Imaging protocol: Computed tomography of the abdomen and pelvis with contrast. Radiation optimization: All CT scans at this facility use at least one of these dose optimization techniques: automated exposure control; mA and/or kV adjustment per patient size (includes targeted exams where dose is matched to clinical indication); or iterative reconstruction. Contrast material: VISI 320; Contrast volume: 95 ml; Contrast route: INTRAVENOUS (IV); COMPARISON: CT abdomen pelvis wo con [id number] 11/08/2017 6:57 PM RADIATION DOSE METRICS: Total DLP (mGy-cm): 1785.62 FINDINGS: Lungs: Lung bases are clear. Liver: The liver is normal. Gallbladder and bile ducts: The gallbladder is absent. There is no intrahepatic or extrahepatic bile duct dilation. Pancreas: The pancreas is unremarkable. Spleen: The spleen is unremarkable. Adrenal glands: The adrenal glands are unremarkable. Kidneys and ureters: There is no hydronephrosis or stones. Stomach and bowel: The stomach is unremarkable. The small bowel is nondilated. There is mild sigmoid colonic diverticulosis without evidence of diverticulitis. Appendix: The appendix is not visible. Intraperitoneal space: There is no free air or significant intraperitoneal free fluid. Vasculature: There is mild aortic atherosclerotic disease. The portal, splenic and superior mesenteric veins are patent. Lymph nodes: There is no lymphadenopathy in the retroperitoneum, mesentery, pelvis or inguinal regions. Urinary bladder: The urinary bladder is unremarkable. Reproductive: The uterus is absent. There is no adnexal mass or large cyst. Bones/joints: There is mild degenerative disease in the lower lumbar spine. The pelvis and proximal femora are intact. Soft tissues: The abdominal wall is intact. CT/CT abdomen pelvis w con* [id number] IMPRESSION: 1. No acute findings. 2. Incidental findings above. Radiation Dose CTDIVOL = (mGy): DLP = 1785.62 (mGy-cm)
[2020-10-26] MEDS: iodixanol 320 mg/mL 100mL Btl IV (20:10)
[2020-10-26 20:16] LABS: Triglycerides 470 mg/dL (0-150)
[2020-10-26] MEDS: insulin regular-human 250 UNIT in sodium chloride 0.9% 250 ML 8 UNIT IV (20:22)
[2020-10-26 20:23] LABS: Glucose Point of Care 336 mg/dL (70-110)
[2020-10-26 20:24] LABS: Reflex Lactate Order REFLEX LACTIC ORDERD
[2020-10-26 20:29] LABS: LDL Cholesterol Direct 95 mg/dL (0-100)
[2020-10-26] MEDS: sodium chloride 0.9% 1,000 ML 150 ML IV (20:38)
[2020-10-26] MEDS: azithromycin 500 MG in sodium chloride 0.9% 250 ML 250 MG IV (20:41)
[2020-10-26 21:11] LABS: Add Urine Microscopic? YES; Bilirubin Urine Neg (Negative); Blood Urine Neg (Negative); Glucose Urine UA 4+ (Normal); Ketones Urine 2+ (Negative); Leukocyte Esterase Urine Negative (Negative); Nitrate Urine Negative (Negative); Protein Urine Trace (Negative); Urine Appearance Clear (CLEAR); Urine Color Yellow (Yellow); Urobilinogen Urine Norm (Negative); pH Urine 5 (5-7)
[2020-10-26 21:21] LABS: Lactic Acid level (Lactate) 1.9 mmol/L (0.5-2.2)
[2020-10-26 21:24] LABS: Add Urine Culture? No; Bacteria Urine TRACE /hpf; Squamous Epithelial Cell Urine 0-4 /hpf (0-5); WBC Urine 0-4 /hpf (0-5)
[2020-10-26 21:40] LABS: Glucose Point of Care 288 mg/dL (70-110)
[2020-10-26 22:14] LABS: Blood Urea Nitrogen 37 mg/dL (8-23); Calcium 8.2 mg/dL (8.5-10.5); Carbon Dioxide 20 mmol/L (22-29); Chloride 105 mmol/L (98-107); Glomerular Filtration Rate 40.6 mL/min (90-130); Glucose 236 mg/dL (65-115); Osmolality Calculated 312 mOsm/kg (285-295); Sodium 143 mmol/L (136-145)
[2020-10-26] MEDS: heparin 5,000 unit/mL INJ 1 mL 5000 UNIT SUBCUT (22:58)
[2020-10-26] MEDS: dextrose 5%-ns + KCl 40 40 MEQ/1,000 ML BAG 100 MEQ IV (22:58)
[2020-10-26 23:06] LABS: Glucose Point of Care 167 mg/dL (70-110)
[2020-10-27] VITALS (89 sets, daily range): BP systolic 124–192; BP diastolic 57–109; PULSE 56–109; RESP 11–24; TEMP 36.5–36.8; O2SAT 89–99; BMI 28.2
[2020-10-27 00:15] LABS: Glucose Point of Care 147 mg/dL (70-110)
[2020-10-27 01:06] LABS: Glucose Point of Care 146 mg/dL (70-110)
[2020-10-27 01:33] LABS: Anion Gap 15.4 (5-19); Blood Urea Nitrogen 33 mg/dL (8-23); Calcium 7.7 mg/dL (8.5-10.5); Carbon Dioxide 23 mmol/L (22-29); Chloride 109 mmol/L (98-107); Glucose 156 mg/dL (65-115); Osmolality Calculated 308 mOsm/kg (285-295); Potassium 3.4 mmol/L (3.5-5.1); Sodium 144 mmol/L (136-145)
[2020-10-27 02:08] LABS: Glucose Point of Care 155 mg/dL (70-110)
[2020-10-27 03:30] LABS: Glucose Point of Care 185 mg/dL (70-110)
[2020-10-27 04:45] LABS: Glucose Point of Care 169 mg/dL (70-110)
[2020-10-27 05:40] LABS: Glucose Point of Care 158 mg/dL (70-110)
[2020-10-27 05:47] LABS: Basophils % 0.7 %; Eosinophils % 0.4 %; Hematocrit 35.8 % (37.0-47.0); Hemoglobin 11.7 g/dL (11.5-15.3); Lymphocytes # 2.2 10^3/uL (0.8-4.8); Lymphocytes % 38.5 %; Mean Corpuscular HGB Conc 32.7 g/dL (30.0-36.0); Mean Corpuscular Hemoglobin 28.1 pg (28.0-34.0); Mean Corpuscular Volume 85.9 fL (81-99); Mean Platelet Volume 10.1 fL (7.4-10.4); Monocytes # 0.6 10^3/uL (0.2-0.9); Monocytes % 11.3 %; Neutrophils # 2.71 10^3/uL (1.8-7.7); Neutrophils % 48.4 %; Nucleated Red Blood Cells % 0 %; Platelet Count 191 10^3/cmm (130-400); Red Blood Count 4.17 10^6/uL (4.1-5.3); Red Cell Distribution Width 13.2 % (12.1-15.1); White Blood Count 5.6 10^3/uL (4.0-10.0)
[2020-10-27 06:10] LABS: Anion Gap 12.3 (5-19); Blood Urea Nitrogen 30 mg/dL (8-23); Calcium 7.8 mg/dL (8.5-10.5); Carbon Dioxide 25 mmol/L (22-29); Chloride 109 mmol/L (98-107); Glomerular Filtration Rate 49.2 mL/min (90-130); Glucose 162 mg/dL (65-115); Osmolality Calculated 306 mOsm/kg (285-295); Potassium 3.3 mmol/L (3.5-5.1); Sodium 143 mmol/L (136-145)
[2020-10-27 06:25] LABS: Slide Review Slide Review Perform
[2020-10-27 06:52] LABS: Glucose Point of Care 155 mg/dL (70-110)
[2020-10-27 07:35] LABS: Glucose Point of Care 148 mg/dL (70-110)
[2020-10-27] MEDS: levothyroxine 88 mcg Tablet PO (09:03)
[2020-10-27 09:11] LABS: Glucose Point of Care 146 mg/dL (70-110)
[2020-10-27 09:41] LABS: Glucose Point of Care 172 mg/dL (70-110)
[2020-10-27] MEDS: heparin 5,000 unit/mL INJ 1 mL 5000 UNIT SUBCUT ×2 (10:02→17:27)
[2020-10-27] MEDS: dextrose 5%-ns + KCl 40 40 MEQ/1,000 ML BAG 100 MEQ IV (10:02)
[2020-10-27 10:10] LABS: Anion Gap 13.4 (5-19); Blood Urea Nitrogen 26 mg/dL (8-23); Carbon Dioxide 25 mmol/L (22-29); Chloride 109 mmol/L (98-107); Glucose 150 mg/dL (65-115); Lipase 175 U/L (13-60); Osmolality Calculated 306 mOsm/kg (285-295); Potassium 3.4 mmol/L (3.5-5.1); Sodium 144 mmol/L (136-145)
--- NOTE | 2020-10-27 10:33 | PC.CHAP ---
Pastoral Care Encounter/Spiritual Assessment Type of Contact [] Declined braille proofreader visit [] Patient/Family/Request visit [] Outpatient visit [] Follow-up visit [] Physician referral [] Code/Alert [x] Routine visit [] Staff referral [] Actively dying [] Patient sleeping [] Family support [] [] Out of room [] Palliative care [] [x] Receiving care in room [] Pre-surgical visit [] Trauma [] Long length of stay [x] ICU visit [] Other: Relational/Emotional Strength [] Patient feels connected with others/family/visitors/staff [] Distress [] Loneliness/isolation [] Abandonment Spirituality of Patient [] Person of Vaishnavi [] Attends Sabianism of their Vaishnavi [] Believes in Prayer [] Reads Bible or Roman Catholic materials [] There are Spiritual issues to be addressed Dispatcher Relay Interventions [x] Prayer [] Active listening [] Non-anxious presence [] Spiritual/emotional support [] Crisis/trauma care [] Spiritual counseling [] Bereavement support [] Provided bereavement packet [] Provided Bible/devotional materials [] Provided toy/stuffed animal, coloring book to patient or family member [] Provided Communion [] Anointing/[place] [] Salvation [x] Completed spiritual assessment [] Other: Impact on Illness or Injury [] Angry [] Fearful [] Anxious [] Often cries [] Exhaustion [] Unable to work [] Unable to attend quaker [] Unable to walk/stand [] Unable to read [] Unable to drive [] Unable to eat/drink [] Unable to sleep [] Unable to be with family [] Patient intubated [] Other: Summary Time spent with patient
--- NOTE | 2020-10-27 10:41 | PM.PN ---
Subjective Subjective: Interval history: Patient admitted overnight. Hospital course on admission note reviewed. No acute events overnight. Patient complaining of abdominal pain. Complaining of occasional headache. She states she has been having headaches for last couple of weeks on and off. Denies any nausea, vomiting, headache. Her anion gap has closed Vitals/I&O/Wt Last Vital Signs Temp 98.3 F 10/27/20 04:30 Pulse 67 10/27/20 08:45 Resp 19 H 10/27/20 08:45 BP 151/65 10/27/20 09:00 Pulse Ox 94 10/27/20 08:45 10/26/20 10/27/20 10/27/20 22:59 06:59 14:59 Intake Total 250 / 250 1000 / 1000 Output Total 75 / 75 250 / 325 Balance 175 / 175 -250 / -75 1000 / 1000 Weight last 48 hrs Weight 79.379 kg Weight 79.379 kg Weight 81.647 kg Physical Exam Narrative: EXAM NARRATIVE: Very pleasant elderly female S1, S2 sinus tachycardia no signs of heart failure or murmur Abdomen: Soft, tenderness in right lower quadrant and epigastric area, bowel sounds present Chest: Normal vesicular breath sounds bilaterally, Lower extremity no edema gangrene or ulcer however multiple cat and dog scratch rainey, no active sign of cellulitis EOMI, PERRLA No neurological deficit Appears anxious No acute respite distress saturating well on room air Data : 10/27/20 05:30 10/27/20 09:07 A&P Assessment and plan (1) DKA (diabetic ketoacidoses): Status: Acute Qualifiers: Diabetes mellitus complication detail: without coma Diabetes mellitus type: type 2 Qualified Code(s): E11.10 - Type 2 diabetes mellitus with ketoacidosis without coma (2) Acute pancreatitis: Status: Acute Qualifiers: Acute pancreatitis complication: no infection or necrosis Pancreatitis type: unspecified pancreatitis type Qualified Code(s): K85.90 - Acute pancreatitis without necrosis or infection, unspecified (3) Abdominal pain: Status: Acute (4) Diabetes mellitus with hyperglycemia, with long-term current use of insulin: Status: Chronic Qualifiers: Diabetes mellitus type: type 2 Qualified Code(s): E11.65 - Type 2 diabetes mellitus with hyperglycemia; Z79.4 - intermediate (current) use of insulin (5) Essential hypertension: Status: Chronic (6) Sleep apnea: Status: Acute (7) Anxiety disorder, unspecified: Status: Chronic Qualifiers: Anxiety disorder type: unspecified anxiety disorder Qualified Code(s): F41.9 - Anxiety disorder, unspecified (8) Diabetic peripheral neuropathy associated with type 2 diabetes mellitus: Status: Chronic (9) Myalgia: Status: Chronic (10) Kidney disease, chronic, stage III (moderate, EGFR 30-59 ml/min): Status: Chronic Additional A&P Information DKA: Positive ketones hyperglycemia positive anion gap, lactic acidemia however ABG shows normal pH but her bicarb is low Anion gap has closed. Stop D5 NS. Start patient on carb consistent full liquid diet. Insulin sliding scale at moderate dose. Continue with home dose of glargine 40 units at bedtime. Recheck BMP for anion gap in 6 hours. HbA1c results appreciated at 7.8 in September 2020. Abdominal pain: Most likely secondary to acute pancreatitis. Not evident on CT scan but patient does have elevated lipase. Abdominal pain can be secondary to DKA as well. Lipase trending down to 170 today. We will continue to monitor daily. Myalgias: Most likely secondary to DKA. Check CPK levels. No active signs of infection. UA unremarkable, no signs of cellulitis around the dog or cat scratch rainey. Essential hypertension: Goal blood pressure less than 140/90 mmHg. Continue home dose of metoprolol succinate, amlodipine. If needed will uptitrate the medications. Can add ZECHARIAH inhibitor's. CKD stage III: Baseline creatinine seems to be running between 1.3-1.5. 1.0 today. Medical reconciliation done for nephrotoxic drugs. Continue other chronic medications including fenofibrate, duloxetine, levothyroxine, Lyrica, Seroquel, Carafate, zonisamide. Full liquid carb consistent diet. Heparin for DVT prophylaxis. CODE STATUS: Patient wishes to be DNR/DNI as per the H&P. Attestations Medical Necessity Statement*: Patient requires further hospitalization for management of diabetic ketoacidosis, essential hypertension, abdominal pain because of acute pancreatitis. Time Spent in Patient Care: Greater than 35 minutes (>than 50% of time spent in counselling and/or direct pt care on unit). Coding Level of Care Code Acute Movie Theater Usher for [facility] Diagnoses DKA (diabetic ketoacidoses) E11.10 Diabetes mellitus complication detail: without coma Diabetes mellitus type: type 2 Acute pancreatitis K85.90 Acute pancreatitis complication: no infection or necrosis Pancreatitis type: unspecified pancreatitis type Abdominal pain R10.9 Diabetes mellitus with hyperglycemia, with long-term current use of insulin E11.65; Z79.4 Diabetes mellitus type: type 2 Essential hypertension I10 Sleep apnea G47.30 Anxiety disorder, unspecified F41.9 Anxiety disorder type: unspecified anxiety disorder Diabetic peripheral neuropathy associated with type 2 diabetes mellitus E11.42 Myalgia M79.10 Kidney disease, chronic, stage III (moderate, EGFR 30-59 ml/min) N18.3
[2020-10-27 11:02] LABS: Ferritin 242 ng/mL (15-150); Iron 85 ug/dL (37-145); Percent Saturation 32.8 % (20-50); Total Iron Binding Capacity 259 mcg/dl; Unsaturated Iron Binding 174 ug/dL (112-347)
[2020-10-27 11:36] LABS: Glucose Point of Care 145 mg/dL (70-110)
[2020-10-27] MEDS: potassium chloride ER 20 mEq Tablet 40 MEQ PO (11:38)
[2020-10-27] MEDS: amlodipine 5 mg Tablet PO (11:38)
[2020-10-27] MEDS: pantoprazole DR 40 mg Tablet PO ×2 (11:38→17:27)
[2020-10-27] MEDS: ciprofloxacin 500 mg Tablet PO ×2 (11:38→21:01)
[2020-10-27] MEDS: metroNIDAZOLE 500 MG Tablet PO ×2 (14:04→21:01)
[2020-10-27] MEDS: losartan 50 mg Tablet PO (17:27)
[2020-10-27] MEDS: duloxetine 60 mg Capsule PO (17:28)
[2020-10-27] MEDS: sucralfate 1 gm Tablet PO (17:28)
[2020-10-27] MEDS: pregabalin 150 mg Capsule 300 MG PO (17:28)
[2020-10-27 17:32] LABS: Glucose Point of Care 229 mg/dL (70-110)
[2020-10-27 18:20] LABS: Anion Gap 18.1 (5-19); Blood Urea Nitrogen 20 mg/dL (8-23); Calcium 8.1 mg/dL (8.5-10.5); Carbon Dioxide 21 mmol/L (22-29); Chloride 103 mmol/L (98-107); Creatine Phosphokinase 86 U/L (26-192); Glomerular Filtration Rate 62.1 mL/min (90-130); Glucose 223 mg/dL (65-115); Lactic Sepsis W/Reflex 1.1 mmol/L (0.5-2.2); Osmolality Calculated 296 mOsm/kg (285-295); Potassium 4.1 mmol/L (3.5-5.1); Sodium 138 mmol/L (136-145)
[2020-10-27] MEDS: hyDRALAzine 20 mg/mL INJ 1 mL 5 MG IVP (20:05)
[2020-10-27] MEDS: acetaminophen 325 mg Tablet 650 MG PO (21:01)
[2020-10-27] MEDS: metoprolol succinate ER (24 HR) 100 mg Tablet PO (21:01)
[2020-10-27] MEDS: quetiapine 100 mg Tablet PO (21:01)
[2020-10-27] MEDS: insulin glargine 100 units/1 mL 40 UNIT SUBCUT (21:08)
[2020-10-27 21:14] LABS: Glucose Point of Care 129 mg/dL (70-110)
[2020-10-27 21:21] LABS: Blood Urea Nitrogen 19 mg/dL (8-23); Calcium 8.4 mg/dL (8.5-10.5); Carbon Dioxide 21 mmol/L (22-29); Chloride 103 mmol/L (98-107); Glomerular Filtration Rate 62.1 mL/min (90-130); Glucose 145 mg/dL (65-115); Osmolality Calculated 291 mOsm/kg (285-295); Sodium 138 mmol/L (136-145); Triglycerides 468 mg/dL (0-150)
[2020-10-27 21:35] LABS: LDL Cholesterol Direct 101 mg/dL (0-100)
[2020-10-27 22:31] LABS: Glucose Point of Care 142 mg/dL (70-110)
--- NOTE | 2020-10-27 22:50 | PC.NURSE ---
Neuro status change Pt found to have snoring respiration, rate 14. Pt opens eyes to painful stimuli briefly, can not keep eyes open. PERRL. Unable to evaluate motor function due lethargic and unable to follow commands. Pt was given ordered 100mg seroquel at 2100 and at that time patient was alert and oriented X 4. Vitals reviewed and WNL. Dr. Cordova notified about change in neuro status, received orders to continue to monitor, believes this is from seroquel. No new orders received.
--- NOTE | 2020-10-28 00:06 | PC.NURSE ---
Report called to CLINT salazar on medsurg. Pt to go to room 250-1. Dr. Art chapman to proceed with transfer.
[2020-10-28 00:20] VITALS: BP 140/70; PULSE 60; RESP 18; TEMP 36.4; O2SAT 97
--- NOTE | 2020-10-28 00:28 | PC.NURSE ---
Pt transferred to 250-1 by bed.
--- NOTE | 2020-10-28 00:46 | PC.NURSE ---
Transfer Patient transferred to med surg from ICU. Patient is resting comfortably in bed. Call light is within reach and bed alarm is set.
[2020-10-28] MEDS: heparin 5,000 unit/mL INJ 1 mL 5000 UNIT SUBCUT ×2 (01:50→09:25)
[2020-10-28 04:00] VITALS: BP 154/74; PULSE 54; RESP 16; TEMP 35.9; O2SAT 97
[2020-10-28 06:22] LABS: Basophils # 0.1 10^3/uL (0.0-0.1); Basophils % 1.6 %; Eosinophils # 0.1 10^3/uL (0.0-0.8); Hematocrit 43.7 % (37.0-47.0); Hemoglobin 13.5 g/dL (11.5-15.3); Lymphocytes # 2.7 10^3/uL (0.8-4.8); Lymphocytes % 53.1 %; Mean Corpuscular HGB Conc 30.9 g/dL (30.0-36.0); Mean Corpuscular Hemoglobin 27.8 pg (28.0-34.0); Mean Corpuscular Volume 90.1 fL (81-99); Monocytes # 0.6 10^3/uL (0.2-0.9); Monocytes % 11.4 %; Neutrophils # 1.61 10^3/uL (1.8-7.7); Neutrophils % 31.7 %; Nucleated Red Blood Cells % 0 %; Platelet Count 194 10^3/cmm (130-400); Red Blood Count 4.85 10^6/uL (4.1-5.3); Red Cell Distribution Width 13.8 % (12.1-15.1); White Blood Count 5.1 10^3/uL (4.0-10.0)
[2020-10-28 06:53] LABS: Alanine Aminotransferase 17 U/L (0-33); Albumin Level 3.4 g/dL (3.5-5.2); Alkaline Phosphatase 37 IU/L (35-105); Anion Gap 13.9 (5-19); Aspartate Amino Transferase 24 U/L (0-32); Blood Urea Nitrogen 19 mg/dL (8-23); Calcium 8.5 mg/dL (8.5-10.5); Carbon Dioxide 23 mmol/L (22-29); Chloride 104 mmol/L (98-107); Globulin 3.3 g/dL (1.3-4.6); Glucose 144 mg/dL (65-115); Osmolality Calculated 289 mOsm/kg (285-295); Potassium 3.9 mmol/L (3.5-5.1); Sodium 137 mmol/L (136-145); Total Bilirubin 0.5 mg/dL (0.15-1.2); Total Protein 6.7 g/dL (6.6-8.7)
--- NOTE | 2020-10-28 06:55 | PC.NURSE ---
Shift Summary Patient rested comfortably throughout the shift. Patient had no complaints of pain during this shift.
[2020-10-28 07:20] LABS: Slide Review Slide Review Perform
[2020-10-28 07:21] LABS: Glucose Point of Care 147 mg/dL (70-110)
[2020-10-28 07:28] VITALS: BP 135/73; PULSE 53; RESP 17; TEMP 36.6; O2SAT 96
[2020-10-28 07:29] VITALS: BP 135/73
[2020-10-28] MEDS: ciprofloxacin 500 mg Tablet PO (07:29)
[2020-10-28] MEDS: metroNIDAZOLE 500 MG Tablet PO (07:29)
[2020-10-28] MEDS: losartan 50 mg Tablet PO (07:29)
[2020-10-28] MEDS: duloxetine 60 mg Capsule PO (07:29)
[2020-10-28] MEDS: fenofibrate 145 mg Tablet PO (07:29)
[2020-10-28] MEDS: sucralfate 1 gm Tablet PO (07:30)
[2020-10-28] MEDS: pregabalin 150 mg Capsule 300 MG PO (07:30)
[2020-10-28] MEDS: amlodipine 5 mg Tablet 10 MG PO (07:30)
[2020-10-28] MEDS: levothyroxine 88 mcg Tablet PO (07:30)
[2020-10-28] MEDS: pantoprazole DR 40 mg Tablet PO (07:30)
[2020-10-28 07:41] LABS: Chol HDL Ratio 10.39 mg/dL (0.0-4.40); Cholesterol 187 mg/dL (0-200); HDL Cholesterol 18 mg/dL (60-100); Triglycerides 407 mg/dL (0-150); VLDL Cholestrol Calculation 81 mg/dL (0-30)
[2020-10-28 08:19] LABS: LDL Cholesterol Direct 100 mg/dL (0-100)
[2020-10-28 11:04] LABS: Glucose Point of Care 113 mg/dL (70-110)
[2020-10-28 12:00] VITALS: BP 132/75; PULSE 63; RESP 18; TEMP 36.4; O2SAT 98
--- NOTE | 2020-10-28 14:09 | P.DS_ITS ---
Discharge Providers Date of Admission: 10/26/20 19:53 Date of Discharge: October 28, 2020 Attending Provider at Admission: Ángel Cordova MD Attending Provider at Discharge: Damian Grace MD Primary Care Provider: BEBE Telles Diagnoses at Discharge Discharge Diagnosis (1) DKA (diabetic ketoacidoses): Status: Acute Qualifiers: Diabetes mellitus complication detail: without coma Diabetes mellitus type: type 2 Qualified Code(s): E11.10 - Type 2 diabetes mellitus with ketoacidosis without coma (2) Acute pancreatitis: Status: Acute Qualifiers: Acute pancreatitis complication: no infection or necrosis Pancreatitis type: unspecified pancreatitis type Qualified Code(s): K85.90 - Acute pancreatitis without necrosis or infection, unspecified (3) Abdominal pain: Status: Acute (4) Diabetes mellitus with hyperglycemia, with long-term current use of insulin: Status: Chronic Qualifiers: Diabetes mellitus type: type 2 Qualified Code(s): E11.65 - Type 2 diabetes mellitus with hyperglycemia; Z79.4 - [facility] (current) use of insulin (5) Essential hypertension: Status: Chronic (6) Sleep apnea: Status: Acute (7) Anxiety disorder, unspecified: Status: Chronic Qualifiers: Anxiety disorder type: unspecified anxiety disorder Qualified Code(s): F41.9 - Anxiety disorder, unspecified (8) Diabetic peripheral neuropathy associated with type 2 diabetes mellitus: Status: Chronic (9) Myalgia: Status: Chronic (10) Kidney disease, chronic, stage III (moderate, EGFR 30-59 ml/min): Status: Chronic Reason for Visit Reason for Visit: AMS,N/V, Fever/Chills Hospital Course Hospital Course Justyna Sánchez is a 69 year old female who has history of multiple comorbid condition, type 2 diabetes, lives alone, was brought in by the family because of her altered mental status and hyperglycemia. Daughter is at the bedside who is endorsing that on Monday her mother called her to ask about Sprite because she was not feeling well, which she described as nausea, vomiting and lethargy. Today when house cleaning lady checked on her, Ms. Sánchez was not oriented at all, hence was transferred to the ED for further evaluation. Patient is stating that she has not been feeling well for last few days, she suffered 2-3 episode of emesis, she is denying abdominal pain, chest pain, shortness of breath, dysuria. She skipped her long-acting insulin dose yesterday otherwise home health nurse manages her medications. She is a poor historian, most of the information has been given by her daughter. No strokelike symptoms were noted at home, no motor weakness, recent falls. Diagnostics in the ER revealed positive ketones, hyperglycemia, lactic acid 2.7, bicarb 18 however ABG shows low normal pH, lipase 770, triglyceride 470, procalcitonin 0.6, CT abdomen pelvis unremarkable, UA unremarkable with positive ketones. Patient went to the hospital for management of DKA. She started on insulin drip to which she responded well. She was transitioned over to insulin sliding scale and Lantus. She tolerated the transition well. Her hospital stay was also complicated by abdominal pain which is secondary to pancreatitis. CT abdomen was done which was negative for any inflammation of pancreas but lipase was elevated. Her diet was gradually advanced and she tolerated the treatment well. Gradually with her treatment her abdominal pain improved. Stool studies were done which were negative for C. difficile or lactoferrin. On further talking with the patient she states that she takes NovoLog once a time at night, Levemir at night and Victoza in middle of the day. Patient checks her blood sugars at home and usually fasting numbers are below 103 dinner numbers are ranging from 1 50-200. She states lately the blood sugar levels have been more erratic. Patient is advised to take Levemir 55 units along with her current dose of Victoza. Patient is advised to maintain her blood sugar diary at home and follow-up with her primary care provider within next 1 week for further adjustment of hypoglycemics. She is advised not to take NovoLog without checking her premeal blood sugars. During hospitalization she was found to have borderline elevated blood pressures for which her antihypertensives were adjusted as well. She is been discharged in hemodynamically stable condition on Cipro and Flagyl for 5 more days to finish an antibiotic course. Physical Exam Narrative: EXAM NARRATIVE: Very pleasant elderly female S1, S2 sinus tachycardia no signs of heart failure or murmur Abdomen: Soft, tenderness in right lower quadrant and epigastric area, bowel sounds present Chest: Normal vesicular breath sounds bilaterally, Lower extremity no edema gangrene or ulcer however multiple cat and dog scratch rainey, no active sign of cellulitis EOMI, PERRLA No neurological deficit Appears anxious No acute respite distress saturating well on room air Discharge Data Data Completed and Pending: Completed Studies During Hospitalization Category Date Time Status CT abdomen pelvis w con* [id number] Stat Cat Scan 10/26/20 19:[address] head wo con* [id number] Urgent Cat Scan 10/26/20 16:57 Completed XR chest 1V lulu ble [id number] Urgent Exams 10/26/20 16:57 Completed Pending at discharge Category Date Time Status Enteric Bacterial Panel by PCR Rout ine Lab 10/28/20 10:51 Results Enteric Parasite Panel by PCR Routi ne Lab 10/28/20 10:51 Results Lactoferrin Routi ne Lab 10/28/20 10:51 Results Labs from last 24 hours 10/28/20 10/28/20 10/28/20 11:01 06:56 05:57 WBC RBC Hgb Hct MCV MCH MCHC RDW Plt Count MPV Neut % (Auto) Lymph % (Auto) [place] % (Auto) Eos % (Auto) Baso % (Auto) Neut # (Auto) Lymph # (Auto) [place] # (Auto) Eos # (Auto) Baso # (Auto) Nucleated RBC % (a uto) Nucleated RBCs # Sodium 137 Potassium 3.9 Chloride 104 Carbon Dioxide 23 Anion Gap 13.9 BUN 19 Creatinine 1.0 H GFR Calculation 55.0 L Glucose 144 H POC Glucose 113 H 147 H Calculated Osmolal ity 289 Lactic Acid Calcium 8.5 Total Bilirubin 0.5 AST 24 ALT 17 Alkaline Phosphata se 37 Creatine Kinase Total Protein 6.7 Albumin 3.4 L Globulin 3.3 Triglycerides Cholesterol LDL Cholesterol Di rect LDL Cholesterol, C alc Total VLDL Cholest kimmy HDL Cholesterol Cholesterol/HDL Ra twin 10/28/20 10/28/20 10/27/20 05:57 05:57 22:29 WBC 5.1 RBC 4.85 Hgb 13.5 Hct 43.7 MCV 90.1 MCH 27.8 L MCHC 30.9 RDW 13.8 Plt Count 194 MPV 10.0 Neut % (Auto) 31.7 Lymph % (Auto) 53.1 [place] % (Auto) 11.4 Eos % (Auto) 1.0 Baso % (Auto) 1.6 Neut # (Auto) 1.61 L Lymph # (Auto) 2.7 [place] # (Auto) 0.6 Eos # (Auto) 0.1 Baso # (Auto) 0.1 Nucleated RBC % (a uto) 0 Nucleated RBCs # 0.0 Sodium Potassium Chloride Carbon Dioxide Anion Gap BUN Creatinine GFR Calculation Glucose POC Glucose 142 H Calculated Osmolal ity Lactic Acid Calcium Total Bilirubin AST ALT Alkaline Phosphata se Creatine Kinase Total Protein Albumin Globulin Triglycerides 407 H Cholesterol 187 LDL Cholesterol Di rect 100 LDL Cholesterol, C alc Not Reportable Total VLDL Cholest kimmy 81 H HDL Cholesterol 18 L Cholesterol/HDL Ra twin 10.39 H 10/27/20 10/27/20 10/27/20 21:00 20:47 17:46 WBC RBC Hgb Hct MCV MCH MCHC RDW Plt Count MPV Neut % (Auto) Lymph % (Auto) [place] % (Auto) Eos % (Auto) Baso % (Auto) Neut # (Auto) Lymph # (Auto) [place] # (Auto) Eos # (Auto) Baso # (Auto) Nucleated RBC % (a uto) Nucleated RBCs # Sodium 138 Potassium 4.0 Chloride 103 Carbon Dioxide 21 L Anion Gap 18.0 BUN 19 Creatinine 0.9 GFR Calculation 62.1 L Glucose 145 H POC Glucose 129 H Calculated Osmolal ity 291 Lactic Acid 1.1 Calcium 8.4 L Total Bilirubin AST ALT Alkaline Phosphata se Creatine Kinase Total Protein Albumin Globulin Triglycerides 468 H Cholesterol LDL Cholesterol Di rect 101 H LDL Cholesterol, C alc Total VLDL Cholest kimmy HDL Cholesterol Cholesterol/HDL Ra twin 10/27/20 10/27/20 17:46 17:19 WBC RBC Hgb Hct MCV MCH MCHC RDW Plt Count MPV Neut % (Auto) Lymph % (Auto) [place] % (Auto) Eos % (Auto) Baso % (Auto) Neut # (Auto) Lymph # (Auto) [place] # (Auto) Eos # (Auto) Baso # (Auto) Nucleated RBC % (a uto) Nucleated RBCs # Sodium 138 Potassium 4.1 Chloride 103 Carbon Dioxide 21 L Anion Gap 18.1 BUN 20 Creatinine 0.9 GFR Calculation 62.1 L Glucose 223 H POC Glucose 229 H Calculated Osmolal ity 296 H Lactic Acid Calcium 8.1 L Total Bilirubin AST ALT Alkaline Phosphata se Creatine Kinase 86 Total Protein Albumin Globulin Triglycerides Cholesterol LDL Cholesterol Di rect LDL Cholesterol, C alc Total VLDL Cholest kimmy HDL Cholesterol Cholesterol/HDL Ra twin Addt'l Data from Hospital Stay: Laboratory Results WBC 5.1 10^3/uL (4.0- 10.0) 10/28/20 05:57 RBC 4.85 10^6/uL (4.1 -5.3) 10/28/20 05:57 Hgb 13.5 g/dL (11.5-1 5.3) 10/28/20 05:57 Hct 43.7 % (37.0-47.0 ) 10/28/20 05:57 MCV 90.1 fL (81-99) 10/28/20 05:57 MCH 27.8 pg (28.0-34. 0) L 10/28/20 05:57 MCHC 30.9 g/dL (30.0-3 6.0) 10/28/20 05:57 RDW 13.8 % (12.1-15.1 ) 10/28/20 05:57 Plt Count 194 10^3/cmm (130 -400) 10/28/20 05:57 MPV 10.0 fL (7.4-10.4 ) 10/28/20 05:57 Neut % (Auto) 31.7 % 10/28/20 05:57 Lymph % (Auto) 53.1 % 10/28/20 05:57 [place] % (Auto) 11.4 % 10/28/20 05:57 Eos % (Auto) 1.0 % 10/28/20 05:57 Baso % (Auto) 1.6 % 10/28/20 05:57 Neut # (Auto) 1.61 10^3/uL (1.8 -7.7) L 10/28/20 05:57 Lymph # (Auto) 2.7 10^3/uL (0.8- 4.8) 10/28/20 05:57 [place] # (Auto) 0.6 10^3/uL (0.2- 0.9) 10/28/20 05:57 Eos # (Auto) 0.1 10^3/uL (0.0- 0.8) 10/28/20 05:57 Baso # (Auto) 0.1 10^3/uL (0.0- 0.1) 10/28/20 05:57 Nucleated RBC % (a uto) 0 % 10/28/20 05:57 Nucleated RBCs # 0.0 /100WBC 10/28/20 05:57 Specimen Type Arterial 10/26/20 17:17 Sample Site Radial, left 10/26/20 17:17 ABG pH 7.38 (7.35-7.45) 10/26/20 17:17 ABG pCO2 26.9 mmHg (35-45) L 10/26/20 17:17 ABG pO2 86.2 mmHg (80.0-1 00.0) 10/26/20 17:17 ABG HCO3 16.0 mmol/L (22-2 6) L 10/26/20 17:17 ABG Base Excess -7.4 mmol/L (-2.0 -2.0) L 10/26/20 17:17 Isaias Test Pos 10/26/20 17:17 Hematocrit 45.8 % (37-47) 10/26/20 17:17 O2 Delivery Device Room air 10/26/20 17:17 FiO2 21.0 % 10/26/20 17:17 General Assistant ID Cak 10/26/20 17:17 Sodium 137 mmol/L (136-1 45) 10/28/20 05:57 Potassium 3.9 mmol/L (3.5-5 .1) 10/28/20 05:57 Chloride 104 mmol/L (98-10 7) 10/28/20 05:57 Carbon Dioxide 23 mmol/L (22-29) 10/28/20 05:57 Anion Gap 13.9 (5-19) 10/28/20 05:57 BUN 19 mg/dL (8-23) 10/28/20 05:57 Creatinine 1.0 mg/dL (0.5-0. 9) H 10/28/20 05:57 GFR Calculation 55.0 mL/min (90-1 30) L 10/28/20 05:57 Glucose 144 mg/dL (65-115 ) H 10/28/20 05:57 POC Glucose 113 mg/dL (70-110 ) H 10/28/20 11:01 Calculated Osmolal ity 289 mOsm/kg (285- 295) 10/28/20 05:57 Lactic Acid 1.1 mmol/L (0.5-2 .2) 10/27/20 17:46 Lactic Acid (Sepsi s) 1.9 mmol/L (0.5-2 .2) 10/26/20 20:36 Lactate 2.7 mmol/L (0.5-2 .2) H 10/26/20 18:30 Calcium 8.5 mg/dL (8.5-10 .5) 10/28/20 05:57 Iron 85 ug/dL (37-145) 10/27/20 09:07 TIBC 259 mcg/dl 10/27/20 09:07 % Saturation 32.8 % (20-50) 10/27/20 09:07 Unsat Iron Binding 174 ug/dL (112-34 7) 10/27/20 09:07 Ferritin 242 ng/mL (15-150 ) H 10/27/20 09:07 Total Bilirubin 0.5 mg/dL (0.15-1 .2) 10/28/20 05:57 AST 24 U/L (0-32) 10/28/20 05:57 ALT 17 U/L (0-33) 10/28/20 05:57 Alkaline Phosphata se 37 IU/L (35-105) 10/28/20 05:57 Creatine Kinase 86 U/L (26-192) 10/27/20 17:46 C-Reactive Protein 86.8 mg/L (0.0-4. 9) H 10/26/20 18:30 Total Protein 6.7 g/dL (6.6-8.7 ) 10/28/20 05:57 Albumin 3.4 g/dL (3.5-5.2 ) L 10/28/20 05:57 Globulin 3.3 g/dL (1.3-4.6 ) 10/28/20 05:57 Triglycerides 407 mg/dL (0-150) H 10/28/20 05:57 Cholesterol 187 mg/dL (0-200) 10/28/20 05:57 LDL Cholesterol Di rect 100 mg/dL (0-100) 10/28/20 05:57 LDL Cholesterol, C alc Not Reportable 10/28/20 05:57 Total VLDL Cholest kimmy 81 mg/dL (0-30) H 10/28/20 05:57 HDL Cholesterol 18 mg/dL (60-100) L 10/28/20 05:57 Cholesterol/HDL Ra twin 10.39 mg/dL (0.0- 4.40) H 10/28/20 05:57 Lipase 175 U/L (13-60) H 10/27/20 09:07 Procalcitonin 0.67 ng/mL (0-0.5 ) H 10/26/20 18:30 TSH 0.32 uIU/mL (0.27 -4.20) 10/26/20 18:30 Urine Color Yellow (Yellow) 10/26/20 20:47 Urine Appearance Clear (CLEAR) 10/26/20 20:47 Urine pH 5 (5-7) 10/26/20 20:47 Ur Specific Gravit y 1.010 (1.005-1.0 30) 10/26/20 20:47 Urine Protein Trace (Negative) 10/26/20 20:47 Urine Glucose (UA) 4+ (Normal) H 10/26/20 20:47 Urine Ketones 2+ (Negative) H 10/26/20 20:47 Urine Blood Neg (Negative) 10/26/20 20:47 Urine Nitrate Negative (Negati ve) 10/26/20 20:47 Urine Bilirubin Neg (Negative) 10/26/20 20:47 Urine Urobilinogen Norm mg/dL (Negat aureliano) 10/26/20 20:47 Ur Leukocyte Shaina ase Negative (Negati ve) 10/26/20 20:47 Urine RBC None /hpf (0-2) 10/26/20 20:47 Urine WBC 0-4 /hpf (0-5) H 10/26/20 20:47 Ur Squamous Epith Cells 0-4 /hpf (0-5) H 10/26/20 20:47 Amorphous Sediment Not Reportable 10/26/20 20:47 Urine Bacteria Trace /hpf (NONE) 10/26/20 20:47 Serum Ketones Positive (Negati ve) H 10/26/20 18:30 SARS-CoV-2 Ag (Rap id) Negative (Negati ve) 10/26/20 17:25 Impressions Chest X-Ray 10/26/20 16:57 IMPRESSION: No acute findings. Head CT 10/26/20 16:57 IMPRESSION: No acute findings. Radiation Dose CTDIVOL = (mGy): DLP = 756.3 (mGy-cm) Abdomen/Pelvis CT 10/26/20 19:43 IMPRESSION: 1. No acute findings. 2. Incidental findings above. Radiation Dose CTDIVOL = (mGy): DLP = 1785.62 (mGy-cm) Vitals: Last Vital Signs Temp 97.6 F 10/28/20 12:00 Pulse 63 10/28/20 12:00 Resp 18 10/28/20 12:00 BP 132/75 10/28/20 12:00 Pulse Ox 98 10/28/20 12:00 Discharge Plan Discharge Patient Disposition: Home Condition: Stable Prescriptions: Continued mupirocin calcium 2 % cream 1 applic TOPICAL TID RF: 0 (DME) lancets [First WaveTouch Delica Lancets] 33 gauge misc See Rx Instructions .ROUTE .MEDSUPPLY Qty: 100 RF: 5 (DME) First WaveTouch Ultra Blue Test Strip Strip See Rx Instructions .ROUTE .MEDSUPPLY Qty: 100 RF: 5 (DME) blood-glucose meter [Kwarteruch Ultra2 Meter] Kit See Rx Instructions .ROUTE .MEDSUPPLY Qty: 1 RF: 0 diclofenac sodium [Voltaren] 1 % gel 2 g topical QID Qty: 100 RF: 1 Novolog Flexpen U-100 Insulin 100 unit/mL (3 mL) insulin pen 3 - 24 unit SUBCUT TID Qty: 15 RF: 2 levocetirizine 5 mg tablet 5 mg PO DAILY Qty: 30 RF: 2 levothyroxine 88 mcg tablet 88 mcg PO DAILY Qty: 30 RF: 2 sucralfate [Carafate] 1 gram tablet 1 g PO BID Qty: 60 RF: 2 duloxetine [Cymbalta] 60 mg capsule,delayed release(DR/EC) 60 mg PO BID Qty: 60 RF: 2 (DME) pen needle, diabetic [Comfort EZ Pen [place]] 31 gauge x 3/16 needle See Rx Instructions .ROUTE .MEDSUPPLY Qty: 150 RF: 3 fenofibrate nanocrystallized [Tricor] 145 mg tablet 145 mg PO DAILY Qty: 30 RF: 2 pregabalin [Lyrica] 300 mg capsule 300 mg PO BID 30 Days Qty: 60 RF: 2 zonisamide 50 mg capsule 50 mg PO BID Qty: 60 RF: 2 tizanidine 4 mg tablet 4 mg PO BID PRN (Reason: muscle spasticity) Qty: 60 RF: 2 metoprolol succinate 100 mg tablet extended release 24 hr 100 mg PO BEDTIME RF: 0 Seroquel 100 mg tablet 100 mg PO BEDTIME RF: 0 ergocalciferol (vitamin D2) 1,250 mcg (50,000 unit) capsule 1,250 mcg PO Q14D RF: 0 Victoza 3-Kris 0.6 mg/0.1 mL (18 mg/3 mL) pen injector 1.8 mg SUBCUT DAILY RF: 0 Changed amlodipine 5 mg tablet 10 mg PO DAILY Qty: 30 RF: 2 Levemir FlexTouch U-100 Insuln 100 unit/mL (3 mL) insulin pen 55 unit SUBCUT DAILY Qty: 0 RF: 0 Discharge Orders: Discharge Order (Routine); Ordered 10/28/20 Ordered By: Damian Grace Referrals: Venu Kumari, [facility] [Primary Care Provider] - 7-10 days Discharge Diet: Cardiac Discharge Activity: Resume usual activity Patient Instructions: Opioid Safety Activity Restrictions/Additional Instructions: Dose of Lantus has been increased to 55 units. Please take NovoLog premeals after checking your blood sugar as per the insulin protocol provided to you. Please maintain a blood sugar diary for next 1 week checking your blood sugars fasting, premeals and follow-up with your primary care provider for further adjustment of hypoglycemics. In-home services have been contacted in detail regarding management of your medications as an outpatient. Discharge Attestations Time Spent in Discharge Care*: greater than 30 min Specific Discharge Activities: educating patient, discussing with pcp/other providers, discussing with pillowcase cleaner/social workers/dc planners, documenting/other paperwork and evaluating patient/reviewing data Status at Discharge: Cognitive status at discharge: cognitively intact , Behavioral status at discharge: cooperative , Functional status at discharge: uses cane/walker Overall status at discharge: patient is back to baseline Quality Metrics Clinical Quality Measures During this hospital stay, did patient experience: None Coding Level of Care Code Acute Chg FW DC note Diagnoses DKA (diabetic ketoacidoses) E11.10 Diabetes mellitus complication detail: without coma Diabetes mellitus type: type 2 Acute pancreatitis K85.90 Acute pancreatitis complication: no infection or necrosis Pancreatitis type: unspecified pancreatitis type Abdominal pain R10.9 Diabetes mellitus with hyperglycemia, with long-term current use of insulin E11 .65; Z79.4 Diabetes mellitus type: type 2 Essential hypertension I10 Sleep apnea G47.30 Anxiety disorder, unspecified F41.9 Anxiety disorder type: unspecified anxiety disorder Diabetic peripheral neuropathy associated with type 2 diabetes mellitus E11.42 Myalgia M79.10 Kidney disease, chronic, stage III (moderate, EGFR 30-59 ml/min) N18.3
[2020-10-28 16:17] VITALS: BP 132/75; PULSE 63; RESP 18; TEMP 36.4; O2SAT 98
== END 2020-10-28 16:18 | disposition home or self-care (01) ==
LOC: ER 16:46 → ICU 23:15 → MEDSURG 10-28 14:13 → ICU 10-30 11:18 → MEDSURG 10-30 11:18
PROVIDERS: Admitting Provider Internal Medicine; Emergency Provider Family Medicine; PCP Nurse Practitioner; Visit Provider Student in an Organized Health Care Education/Training Program
DX: E11.10 Type 2 diabetes mellitus with ketoacidosis without coma (principal); K85.90 Acute pancreatitis without necrosis or infection, unspecified; R10.9 Unspecified abdominal pain; E11.65 Type 2 diabetes mellitus with hyperglycemia; E11.22 Type 2 diabetes mellitus with diabetic chronic kidney disease; I12.9 Hypertensive chronic kidney disease with stage 1 through stage 4 chronic kidney disease, or unspecified chronic kidney disease; N18.4 Chronic kidney disease, stage 4 (severe); Z79.4 Long term (current) use of insulin; G47.30 Sleep apnea, unspecified; F41.9 Anxiety disorder, unspecified; E11.42 Type 2 diabetes mellitus with diabetic polyneuropathy; M79.10 Myalgia, unspecified site; E78.2 Mixed hyperlipidemia
CPT/HCPCS: 36415; 36416; 36600; 70450; 71045; 74177; 80048; 80053; 80061; 81001; 82009; 82550; 82728; 82803; 82962; 83540; 83550; 83605; 83630; 83690; 83721; 84145; 84443; 84478; 85025; 86140; 87426; 87493; 87506; 96365; 96366; 96367; 96372; 96375; 97116; 97161; 99285; G0378; J0360; J0456; J1644; J1815 ×2; J7030; J7050; Q9967

== ENCOUNTER → 2020-11-03 10:56 | Outpatient (BNVA) | payer MEDICARE, MEDICAID, SELFPAY | PROVIDERS: PCP Nurse Practitioner; Visit Provider Nurse Practitioner | DX: E11.65 Type 2 diabetes mellitus with hyperglycemia (principal); E78.2 Mixed hyperlipidemia; Z79.4 Long term (current) use of insulin | CPT/HCPCS: 80053; 83690; 85025 ==

== ENCOUNTER → 2020-11-16 13:46 | Outpatient (BNVA) | payer MEDICARE, MEDICAID, SELFPAY | PROVIDERS: PCP Nurse Practitioner; Visit Provider Nurse Practitioner | DX: E11.65 Type 2 diabetes mellitus with hyperglycemia (principal); Z79.4 Long term (current) use of insulin; R09.89 Other specified symptoms and signs involving the circulatory and respiratory systems | CPT/HCPCS: 80053; 81000 ==

== ENCOUNTER → 2020-12-14 11:22 | Outpatient (BNVA) | payer MEDICARE, MEDICAID, SELFPAY | PROVIDERS: PCP Nurse Practitioner; Visit Provider Nurse Practitioner | DX: F41.9 Anxiety disorder, unspecified (principal); F43.12 Post-traumatic stress disorder, chronic; F33.41 Major depressive disorder, recurrent, in partial remission | CPT/HCPCS: 99214 ==

== ENCOUNTER → 2020-12-17 15:12 | Outpatient (BNVA) | payer MEDICARE, MEDICAID, SELFPAY | PROVIDERS: PCP Nurse Practitioner; Visit Provider Nurse Practitioner Family | DX: R30.0 Dysuria (principal); N39.0 Urinary tract infection, site not specified | CPT/HCPCS: 81003; 87086 ==

== ENCOUNTER 2021-01-01 14:59 | Outpatient (CLI) | payer MEDICARE, MEDICAID, SELFPAY ==
--- NOTE | 2021-01-01 15:00 | USCV_ITS ---
Gonzalo Justyna Age: 70 Gender: F : 1950 Exam Date: 01/01/2021 15:10 Ordering Phys: Venu Kumari Technologist: Addie Bautista [place] [facility] [place]: MEMORY LOSS Risk Factors: Previous Vascular Surgery: Right Brachial BP: / Left Brachial BP: / Right Left Velocity (cm/s) Spectral Plaque Velocity (cm/s) Spectral Plaque Syst/Diast Broadening Syst/Diast Broadening 78.80/ 13.10 Prox CCA 78.80 / 9.20 64.80/ 14.90 Mid CCA 70.20 / 9.60 55.70/ 17.20 Distal CCA 57.70 / 12.50 54.40/ 14.50 Prox ICA 55.90 / 14.20 72.90/ 19.90 Mid ICA 70.50 / 21.80 71.90/ 27.40 Distal ICA 67.60 / 21.80 63.40 ECA 64.10 1.12 ICA/CCA 1.00 Antegrade Vertebral Antegrade 46.50/ 12.30 cm/s 43.10/ 11.20 cm/s Bi Subclavian Bi 95.30 126.5 0 FINDINGS Comparison: none available. No significant elevation of systolic or diastolic velocities. Waveforms are normal. No significant amount of calcified plaque or intimal thickening identified. CONCLUSIONS Normal carotid doppler ultrasound. Dr. Elisha Prado DO (Electronically Signed) Final Date: 01 January 2021 15:34 S
== END 2021-01-01 15:00 | disposition home or self-care (01) ==
LOC: US 15:01
PROVIDERS: PCP Nurse Practitioner; Visit Provider Nurse Practitioner
DX: R09.89 Other specified symptoms and signs involving the circulatory and respiratory systems (principal); E55.9 Vitamin D deficiency, unspecified; E11.65 Type 2 diabetes mellitus with hyperglycemia; Z79.4 Long term (current) use of insulin; E78.5 Hyperlipidemia, unspecified
CPT/HCPCS: 80053; 80061; 82306; 83036; 84443; 85025; 93880

== ENCOUNTER → 2021-01-11 14:12 | Outpatient (BNVA) | payer MEDICARE, MEDICAID, SELFPAY | PROVIDERS: PCP Nurse Practitioner; Visit Provider Nurse Practitioner | DX: I10 Essential (primary) hypertension (principal); E11.65 Type 2 diabetes mellitus with hyperglycemia; E11.42 Type 2 diabetes mellitus with diabetic polyneuropathy; E55.9 Vitamin D deficiency, unspecified; E78.5 Hyperlipidemia, unspecified; J30.89 Other allergic rhinitis; E03.8 Other specified hypothyroidism; K21.9 Gastro-esophageal reflux disease without esophagitis; B37.2 Candidiasis of skin and nail; M79.10 Myalgia, unspecified site; Z79.4 Long term (current) use of insulin | CPT/HCPCS: 81000 ==

== ENCOUNTER → 2021-01-19 14:14 | Outpatient (BNVA) | payer MEDICARE, MEDICAID, SELFPAY | PROVIDERS: PCP Nurse Practitioner; Visit Provider Nurse Practitioner Family | DX: N18.32 Chronic kidney disease, stage 3b (principal); N39.0 Urinary tract infection, site not specified; S09.90XA Unspecified injury of head, initial encounter; W19.XXXA Unspecified fall, initial encounter; R30.0 Dysuria; R11.0 Nausea; R51.9 Headache, unspecified | CPT/HCPCS: 80069; 81003; 82043; 82310; 83970; 85025 ==

== ENCOUNTER 2021-01-22 13:35 | Outpatient (CLI) | payer MEDICARE, MEDICAID, SELFPAY ==
--- NOTE | 2021-01-22 13:43 | CT_ITS ---
WS: [id number] Comparison 10/26/2020. Date/Time of Exam: 01/22/2021 1:43 PM Reason For Exam: W19.XXXA - Unspecified fall, initial encounter DLP: 925.[address] scans at [facility] use at least one of these dose optimization techniques: automat ed exposure control; mA and/or kV adjustment per patient size (includes targeted exams where dose is matched to clinical indication); or iterative reconstruction. No sign of acute intracranial bleed or space-occupying mass. Diffuse atrophy with volume loss. No ext ra-axial fluid collections. The ventricles and basal cisterns are mildly prominent secondary to volum e loss. The skull is intact. The mastoids and facial sinuses are clear. CT/CT head wo con* [id number] IMPRESSION: 1. No acute intracranial process.
== END 2021-01-22 13:36 | disposition home or self-care (01) ==
LOC: RADWPI 13:38
PROVIDERS: PCP Nurse Practitioner; Visit Provider Nurse Practitioner Family
DX: S09.90XA Unspecified injury of head, initial encounter (principal); W19.XXXA Unspecified fall, initial encounter
CPT/HCPCS: 70450

== ENCOUNTER 2021-03-09 15:12 | Outpatient (CLI) | payer MEDICARE, MEDICAID, SELFPAY ==
--- NOTE | 2021-03-09 15:00 | MM_ITS ---
WS: [id number] SCREENING DIGITAL MAMMOGRAM WITH CAD HISTORY: Z12.31 - Encounter for screening mammogram for malignant neoplasm. COMPARISON: 03/06/2018 and 12/11/2013 Bilateral CC and MLO views submitted. Computer aided detection analyzed. Breast composition: The breasts are heterogeneously dense, which may obscure small masses. Focal asym metry measuring 7 mm in the central LEFT breast on the CC projection. No corresponding abnormality no werner on the MLO projection. Additional bilateral benign appearing calcifications. MM/[place] [id number] IMPRESSION: BI-RADS: 0-Incomplete: Need additional imaging evaluation FOLLOW UP: Need Additional Imaging LEFT breast: Spot compression views (CC ). True ML. Ultrasound to follow if abn ormality persists.
== END 2021-03-09 15:13 | disposition home or self-care (01) ==
PROVIDERS: PCP Nurse Practitioner; Visit Provider Nurse Practitioner Family
DX: Z12.31 Encounter for screening mammogram for malignant neoplasm of breast (principal)
CPT/HCPCS: 73610; 77067; 99214

== ENCOUNTER → 2021-04-12 15:42 | Outpatient (BNVA) | payer MEDICARE, MEDICAID, SELFPAY | PROVIDERS: PCP Nurse Practitioner; Visit Provider Nurse Practitioner | DX: Z98.1 Arthrodesis status (principal); M25.511 Pain in right shoulder; M25.512 Pain in left shoulder; E11.65 Type 2 diabetes mellitus with hyperglycemia; Z79.4 Long term (current) use of insulin; I10 Essential (primary) hypertension; E11.42 Type 2 diabetes mellitus with diabetic polyneuropathy; E55.9 Vitamin D deficiency, unspecified; E78.5 Hyperlipidemia, unspecified; M79.89 Other specified soft tissue disorders; J30.89 Other allergic rhinitis; E03.8 Other specified hypothyroidism; K21.9 Gastro-esophageal reflux disease without esophagitis | CPT/HCPCS: 73030; 80053; 80061; 83036; 84443; 85025 ==

== ENCOUNTER 2021-05-06 12:28 | Outpatient (CLI) | payer MEDICARE, MEDICAID, SELFPAY ==
--- NOTE | 2021-05-06 13:00 | MM_ITS ---
WS: [email or web address] ADDITIONAL VIEWS LEFT MAMMOGRAM LEFT BREAST ULTRASOUND HISTORY: Left breast asymmetry COMPARISON: 03/09/2021, 03/06/2018 and 04/01/2011 LEFT MAMMOGRAM: Spot compression views and true ML. Heterogeneously dense breasts. 9 millimeter asymmetry inferior to the nipple line seen only the ML pr ojection. LEFT BREAST ULTRASOUND 2-D and color Doppler imaging submitted. Subtle area of decreased echogenicity in the LEFT breast at 6:00 may be a small lymph node. No defini te mass or nodule identified. No shadowing. There are very mildly dilated ducts at the nipple. MM/[place] [id number] IMPRESSION: BI-RADS: 0-Incomplete: Need additional imaging evaluation FOLLOW UP: 6 Month Follow-up No abnormality identified in the LEFT breast that persists on all views or the ultrasound. Patient's breasts are heterogeneously dense which can obscure early small masses. Recommend diagnostic six-month follow-up LEFT breast evaluation with possible ultrasound.
--- NOTE | 2021-05-06 13:30 | US_ITS ---
WS: [email or web address] ADDITIONAL VIEWS LEFT MAMMOGRAM LEFT BREAST ULTRASOUND HISTORY: Left breast asymmetry COMPARISON: 03/09/2021, 03/06/2018 and 04/01/2011 LEFT MAMMOGRAM: Spot compression views and true ML. Heterogeneously dense breasts. 9 millimeter asymmetry inferior to the nipple line seen only the ML pr ojection. LEFT BREAST ULTRASOUND 2-D and color Doppler imaging submitted. Subtle area of decreased echogenicity in the LEFT breast at 6:00 may be a small lymph node. No defini te mass or nodule identified. No shadowing. There are very mildly dilated ducts at the nipple. US/US breast LT limited* [id number] IMPRESSION: BI-RADS: 0-Incomplete: Need additional imaging evaluation FOLLOW UP: 6 Month Follow-up No abnormality identified in the LEFT breast that persists on all views or the ultrasound. Patient's breasts are heterogeneously dense which can obscure early small masses. Recommend diagnostic six-month follow-up LEFT breast evaluation with possible ultrasound.
== END 2021-05-06 12:29 | disposition home or self-care (01) ==
LOC: RADSHAW 12:31
PROVIDERS: PCP Nurse Practitioner; Visit Provider Nurse Practitioner Family
DX: N64.89 Other specified disorders of breast (principal)
CPT/HCPCS: 76642; 77065

== ENCOUNTER → 2021-06-01 13:39 | Outpatient (BNVA) | payer MEDICARE, MEDICAID, SELFPAY | PROVIDERS: PCP Nurse Practitioner; Visit Provider Nurse Practitioner | DX: F41.9 Anxiety disorder, unspecified (principal); F33.41 Major depressive disorder, recurrent, in partial remission; F43.12 Post-traumatic stress disorder, chronic | CPT/HCPCS: 99214 ==

== ENCOUNTER → 2021-07-12 14:12 | Outpatient (BNVA) | payer MEDICARE, MEDICAID, SELFPAY | PROVIDERS: PCP Nurse Practitioner; Visit Provider Nurse Practitioner | DX: E11.65 Type 2 diabetes mellitus with hyperglycemia (principal); Z79.4 Long term (current) use of insulin; I10 Essential (primary) hypertension; E55.9 Vitamin D deficiency, unspecified; E78.2 Mixed hyperlipidemia; J30.89 Other allergic rhinitis; E03.8 Other specified hypothyroidism; E11.42 Type 2 diabetes mellitus with diabetic polyneuropathy; K21.9 Gastro-esophageal reflux disease without esophagitis | CPT/HCPCS: 80053; 81000; 83036 ==

== ENCOUNTER → 2021-07-20 11:48 | Outpatient (BNVA) | payer MEDICARE, MEDICAID, SELFPAY | PROVIDERS: PCP Nurse Practitioner; Visit Provider Podiatrist Foot & Ankle Surgery | DX: M79.671 Pain in right foot (principal); M21.621 Bunionette of right foot | CPT/HCPCS: 73630 ==

== ENCOUNTER 2021-07-30 14:29 | Outpatient (CLI) | payer MEDICARE, MEDICAID, SELFPAY ==
--- NOTE | 2021-07-30 14:42 | MR_ITS ---
WS: [email or web address] MRI LEFT SHOULDER HISTORY: M25.512 - Pain in left shoulder COMPARISON: Radiograph 04/12/2021 TECHNIQUE: Multiplanar sequences of the shoulder joint are submitted. Fluid signal within the AC joint. Mild soft tissue and bone hypertrophy. Small osteophyte from the di stal undersurface of the acromion contacting the distal tendon. No displacement. Small amount of flui d in the subacromial bursa. No os acromion. Biceps tendon is small caliber in the bicipital groove. No significant atrophy of the rotator cuff muscles. There is a very minimal partial tear along the ar ticular surface of the distal supraspinatus tendon. No retraction. Mild thickening and increased sign al in the subscapularis tendon from tendinopathy. No joint effusion. No labral tear is identified. MR/MR shoulder LT con* [id number] IMPRESSION: 1. Torn ACL ligament with no displacement. 2. Very small articular surface tear of the distal supraspinatus tendon. 3. Subscapularis tendinopathy. 4. Mild AC joint arthritis.
== END 2021-07-30 14:30 | disposition home or self-care (01) ==
LOC: RAD 14:36
PROVIDERS: PCP Nurse Practitioner; Visit Provider Nurse Practitioner
DX: M19.012 Primary osteoarthritis, left shoulder (principal)
CPT/HCPCS: 73221

== ENCOUNTER 2021-08-03 12:37 | Outpatient (CLI) | payer MEDICARE, MEDICAID, SELFPAY ==
--- NOTE | 2021-08-03 12:45 | CT_ITS ---
WS: [email or web address] CT CERVICAL SPINE TECHNIQUE: Noncontrast CT of the cervical spine with coronal and sagittal reformatted images. CLINICAL INFORMATION: Z98.1 - Arthrodesis status COMPARISON: CT 6 13,018 and 8 25,013 DLP: 296.[address] scans at [facility] use at least one of these dose optimization techniques: automated e xposure control; mA and/or kV adjustment per patient size (includes targeted exams where dose is matc hed to clinical indication); or iterative reconstruction. FINDINGS: Straightening of the normal cervical lordosis. Prior postoperative changes ACDF C4-C7 with interbody fusion grafts. Interbody fusion graft C3-C4. Hardware appears intact. No evidence of hardware looseni ng. Solid appearing interbody fusion grafts at C3-C4 C4-C5 C5-C6 with evidence of bony bridging beyon d the confines of the graft. Evidence of incomplete partial fusion at C6-C7. Residual disc space ecce ntric to the LEFT at C6-C7. C2-C3: Broad-based central disc osteophyte protrusion with moderate central canal stenosis. Moderate LEFT facet arthropathy. C3-C4: Mild disc osteophytic ridging. Interbody fusion. Mild to moderate LEFT and no significant RIGH T foraminal narrowing. Mild central canal stenosis. C4-C5: ACDF. Mild bilateral bony foraminal narrowing worse in the LEFT. Spinal canal is patent. C5-C6: ACDF. Mild LEFT and no significant RIGHT foraminal narrowing. Mild central canal stenosis. C6-C7: ACDF. Mild/moderate LEFT and no significant RIGHT foraminal narrowing. Mild central canal sten osis. C7-T1: ACDF. Spinal canal and foramen are patent. Visualized posterior nasopharynx: Normal. Prevertebral soft tissues: Normal. Overall cervical spine not significantly changed since 18. Fusion grafts are similar in appe arance and appears stable. CT/CT cervical spin wo con* [id number] IMPRESSION: 1. Straightening of the normal cervical lordosis. 2. Prior postoperative changes C4-C7 with ACDF. No evidence of hardware loosen ing. Additional interbody bony fusion C3-C4. 3. Solid appearing interbody fusion grafts C3-C4 C4-C5 C5- C6. Partial interbo dy fusion at C6-C7 with lucency and mild widening eccentric to the LEFT. 4. Moderate central canal stenosis C3-C4 due to disc osteophyte protrusion. 5. Mild central canal stenosis C3-C4 C5-C6 and C6-C7. 6. Mild to moderate bony foraminal narrowing worse at LEFT C2-C3, LEFT C3-C4, bilateral C4-C5, LEFT C6-C7.
== END 2021-08-03 12:38 | disposition home or self-care (01) ==
LOC: RAD 12:38
PROVIDERS: PCP Nurse Practitioner; Visit Provider Nurse Practitioner
DX: Z98.1 Arthrodesis status (principal); M48.02 Spinal stenosis, cervical region; M25.78 Osteophyte, vertebrae
CPT/HCPCS: 72125

== ENCOUNTER → 2021-08-09 16:17 | Outpatient (BNVA) | payer MEDICARE, MEDICAID, SELFPAY | PROVIDERS: PCP Nurse Practitioner; Visit Provider Nurse Practitioner | DX: E11.65 Type 2 diabetes mellitus with hyperglycemia (principal); Z79.4 Long term (current) use of insulin; M75.100 Unspecified rotator cuff tear or rupture of unspecified shoulder, not specified as traumatic | CPT/HCPCS: 80048 ==

== ENCOUNTER → 2021-08-31 13:12 | Outpatient (BNVA) | payer MEDICARE, MEDICAID, SELFPAY | PROVIDERS: PCP Nurse Practitioner; Visit Provider Nurse Practitioner | DX: F33.41 Major depressive disorder, recurrent, in partial remission (principal); F43.12 Post-traumatic stress disorder, chronic; F41.9 Anxiety disorder, unspecified | CPT/HCPCS: 99214 ==

== ENCOUNTER 2021-09-06 13:22 | Outpatient (CLI) | payer MEDICARE, MEDICAID, SELFPAY ==
--- NOTE | 2021-09-06 13:36 | CT_ITS ---
WS: [email or web address] CT CERVICAL SPINE TECHNIQUE: Noncontrast CT of the cervical spine with coronal and sagittal reformatted images. CLINICAL INFORMATION: ARTHRODESIS STATUS/NECK PAIN DOWN SHOULDER COMPARISON: CT cervical August 03, 2021 DLP: 230.[address] scans at [facility] use at least one of these dose optimization techniques: automated e xposure control; mA and/or kV adjustment per patient size (includes targeted exams where dose is matc hed to clinical indication); or iterative reconstruction. FINDINGS: Straightening of the normal cervical lordosis. Prior postoperative changes ACDF C4-C7 with interbody fusion grafts. Interbody bony fusion graft C3-C4. No evidence of hardware loosening. Solid appearing interbody fusion grafts at C3-C4 C4-C5 C5-C6 with evidence of bony bridging beyond the confines of the graft. Evidence of incomplete partial fusion at C6-C7. Residual disc space eccentric to the LEFT at C6-C7. C2-C3: Broad-based central disc osteophyte protrusion with moderate central canal stenosis. Moderate LEFT facet arthropathy. C3-C4: Mild disc osteophytic ridging. Interbody fusion. Mild to moderate LEFT and no significant RIGH T foraminal narrowing. Mild central canal stenosis. C4-C5: ACDF. Mild bilateral bony foraminal narrowing worse on the LEFT. Spinal canal is patent. C5-C6: ACDF. Mild LEFT and no significant RIGHT foraminal narrowing. Mild central canal stenosis. C6-C7: ACDF. Mild/moderate LEFT and no significant RIGHT foraminal narrowing. Mild central canal sten osis. C7-T1: ACDF. Spinal canal and foramen are patent. Mastoid air cells are well aerated. Lung apices appear well aerated. CT/CT cervical spin wo con* [id number] IMPRESSION: 1. Overall no significant changes compared to previous.. 2. Prior postoperative changes C4-C7 with ACDF. No evidence of hardware looseni ng. Interbody bony fusion C3-C4. 3. Solid appearing interbody fusion grafts C3-C4 C4-C5 C5-C6. Partial interbody fusion at C6-C7 with lucency and mild widening eccentric to the LEFT is unchan ged. 4. Moderate central canal stenosis C3-C4 due to disc osteophyte protrusion. 5. Mild central canal stenosis C3-C4 C5-C6 and C6-C7. 6. Mild to moderate bony foraminal narrowing worse at LEFT C2-C3, LEFT C3-C4, b ilateral C4-C5, and LEFT C6-C7 unchanged.
== END 2021-09-06 13:23 | disposition home or self-care (01) ==
LOC: RAD 13:24
PROVIDERS: PCP Nurse Practitioner; Visit Provider Nurse Practitioner
DX: Z98.1 Arthrodesis status (principal); M48.02 Spinal stenosis, cervical region; M25.78 Osteophyte, vertebrae
CPT/HCPCS: 72125

== ENCOUNTER → 2021-09-30 15:53 | Outpatient (BNVA) | payer MEDICARE, MEDICAID, SELFPAY | PROVIDERS: PCP Nurse Practitioner; Visit Provider Nurse Practitioner | DX: E11.65 Type 2 diabetes mellitus with hyperglycemia (principal); Z79.4 Long term (current) use of insulin; I10 Essential (primary) hypertension; F41.9 Anxiety disorder, unspecified; E55.9 Vitamin D deficiency, unspecified; E78.2 Mixed hyperlipidemia; J30.89 Other allergic rhinitis; E03.8 Other specified hypothyroidism; E11.42 Type 2 diabetes mellitus with diabetic polyneuropathy; K21.9 Gastro-esophageal reflux disease without esophagitis; M79.10 Myalgia, unspecified site | CPT/HCPCS: 80053; 80061; 83036; 84443 ==

== ENCOUNTER → 2021-12-20 15:36 | Outpatient (BNVA) | payer MEDICARE, MEDICAID, SELFPAY | PROVIDERS: PCP Nurse Practitioner; Visit Provider Nurse Practitioner | DX: I10 Essential (primary) hypertension (principal); E11.65 Type 2 diabetes mellitus with hyperglycemia; Z79.4 Long term (current) use of insulin; E55.9 Vitamin D deficiency, unspecified; J30.89 Other allergic rhinitis; E03.8 Other specified hypothyroidism; E11.42 Type 2 diabetes mellitus with diabetic polyneuropathy; E78.2 Mixed hyperlipidemia; M79.10 Myalgia, unspecified site; K21.9 Gastro-esophageal reflux disease without esophagitis | CPT/HCPCS: 80053; 80061; 81000; 83036 ==

== ENCOUNTER 2021-12-23 14:35 | Outpatient (CLI) | payer MEDICARE, MEDICAID, SELFPAY ==
--- NOTE | 2021-12-23 14:47 | MM_ITS ---
WS: [id number] LEFT DIGITAL BREAST TOMOSYNTHESIS MAMMOGRAPHY WITH CAD. LEFT breast ultrasound, limited HISTORY: Six-month follow-up in asymmetry in the medial inferior LEFT breast. COMPARISON: 05/06/2021, 03/09/2021 and 03/06/2018 Technique: CC, MLO and ML views. Spot compression LEFT CC and MLO. Breast composition: The breasts are heterogeneously dense, which may obscure small masses. The previ ously described asymmetry in the medial inferior LEFT breast is not as well visualized today. There a re no suspicious findings. No nipple retraction. Ultrasound will be performed of the LEFT breast to i nclude the 7:00 axis in which there was a hypoechoic nodule seen on the prior ultrasound. LEFT breast ultrasound, limited. No change in the previously described LEFT breast asymmetry at 6:00. The asymmetry is again identifie d measuring 4 x 2 x 4 mm. Nonspecific and may be normal breast tissue. MM/[place] [id number] IMPRESSION: BI-RADS: 2-Benign FOLLOW UP: See Report Return to annual screening evaluation.
== END 2021-12-23 14:36 | disposition home or self-care (01) ==
LOC: RAD 14:36
PROVIDERS: PCP Nurse Practitioner; Visit Provider Nurse Practitioner
DX: R92.8 Other abnormal and inconclusive findings on diagnostic imaging of breast (principal)
CPT/HCPCS: 76642; 77061

== ENCOUNTER → 2022-01-19 15:37 | Outpatient (BNVA) | payer MEDICARE, MEDICAID, SELFPAY | PROVIDERS: PCP Nurse Practitioner; Visit Provider Internal Medicine | DX: I12.9 Hypertensive chronic kidney disease with stage 1 through stage 4 chronic kidney disease, or unspecified chronic kidney disease (principal); N18.4 Chronic kidney disease, stage 4 (severe); Z99.2 Dependence on renal dialysis; E11.22 Type 2 diabetes mellitus with diabetic chronic kidney disease; E11.65 Type 2 diabetes mellitus with hyperglycemia; Z79.4 Long term (current) use of insulin; G47.30 Sleep apnea, unspecified; E78.2 Mixed hyperlipidemia; R07.9 Chest pain, unspecified | CPT/HCPCS: 99214 ==

== ENCOUNTER → 2022-03-08 15:45 | Outpatient (BNVA) | payer MEDICARE, MEDICAID, SELFPAY | PROVIDERS: PCP Nurse Practitioner; Visit Provider Podiatrist Foot & Ankle Surgery | DX: M21.611 Bunion of right foot (principal); E11.65 Type 2 diabetes mellitus with hyperglycemia; Z79.4 Long term (current) use of insulin; M77.51 Other enthesopathy of right foot and ankle; M21.621 Bunionette of right foot; M21.371 Foot drop, right foot; M21.612 Bunion of left foot | CPT/HCPCS: 73630; 99214 ==

== ENCOUNTER → 2022-03-28 15:36 | Outpatient (BNVA) | payer MEDICARE, MEDICAID, SELFPAY | PROVIDERS: PCP Nurse Practitioner; Visit Provider Podiatrist Foot & Ankle Surgery | DX: M21.611 Bunion of right foot (principal); E11.65 Type 2 diabetes mellitus with hyperglycemia; Z79.4 Long term (current) use of insulin; M77.51 Other enthesopathy of right foot and ankle; M21.621 Bunionette of right foot; M21.622 Bunionette of left foot; M21.371 Foot drop, right foot | CPT/HCPCS: 73630; 99214 ==

== ENCOUNTER → 2022-05-06 11:17 | Outpatient (BNVA) | payer MEDICARE, MEDICAID, SELFPAY | PROVIDERS: PCP Nurse Practitioner; Visit Provider Nurse Practitioner | DX: I10 Essential (primary) hypertension (principal); E11.65 Type 2 diabetes mellitus with hyperglycemia; Z79.4 Long term (current) use of insulin; E03.8 Other specified hypothyroidism | CPT/HCPCS: 80053; 80061; 83036; 84443 ==

== ENCOUNTER → 2022-07-19 15:31 | Outpatient (BNVA) | payer MEDICARE, MEDICAID, SELFPAY | PROVIDERS: PCP Nurse Practitioner; Visit Provider Podiatrist Foot & Ankle Surgery | DX: E11.8 Type 2 diabetes mellitus with unspecified complications (principal); M21.611 Bunion of right foot; M21.612 Bunion of left foot; E11.65 Type 2 diabetes mellitus with hyperglycemia; Z79.4 Long term (current) use of insulin; M77.51 Other enthesopathy of right foot and ankle; M21.621 Bunionette of right foot; M21.371 Foot drop, right foot; M21.622 Bunionette of left foot | CPT/HCPCS: 99214 ==

== ENCOUNTER → 2022-07-27 13:49 | Outpatient (BNVA) | payer MEDICARE, MEDICAID, SELFPAY | PROVIDERS: PCP Nurse Practitioner; Visit Provider Internal Medicine | DX: I12.9 Hypertensive chronic kidney disease with stage 1 through stage 4 chronic kidney disease, or unspecified chronic kidney disease (principal); E11.22 Type 2 diabetes mellitus with diabetic chronic kidney disease; N18.4 Chronic kidney disease, stage 4 (severe); E11.65 Type 2 diabetes mellitus with hyperglycemia; Z79.4 Long term (current) use of insulin; R07.9 Chest pain, unspecified; R06.02 Shortness of breath; G47.30 Sleep apnea, unspecified; E78.2 Mixed hyperlipidemia; E78.5 Hyperlipidemia, unspecified | CPT/HCPCS: 99213 ==

== ENCOUNTER → 2022-08-26 11:32 | Outpatient (BNVA) | payer MEDICARE, MEDICAID, SELFPAY | PROVIDERS: PCP Nurse Practitioner; Visit Provider Nurse Practitioner | DX: E11.65 Type 2 diabetes mellitus with hyperglycemia (principal); Z79.4 Long term (current) use of insulin | CPT/HCPCS: 80053; 80061; 83036; 84443 ==

== ENCOUNTER → 2022-09-05 08:24 | Outpatient (BNVA) | payer MEDICARE, MEDICAID, OTHER, SELFPAY | PROVIDERS: PCP Nurse Practitioner; Visit Provider Nurse Practitioner | DX: E11.65 Type 2 diabetes mellitus with hyperglycemia (principal); Z79.4 Long term (current) use of insulin | CPT/HCPCS: 81000 ==

== ENCOUNTER → 2022-11-03 14:56 | Outpatient (BNVA) | payer MEDICARE, MEDICAID, SELFPAY | PROVIDERS: PCP Nurse Practitioner; Visit Provider Nurse Practitioner | DX: I10 Essential (primary) hypertension (principal); E11.65 Type 2 diabetes mellitus with hyperglycemia; Z79.4 Long term (current) use of insulin; E55.9 Vitamin D deficiency, unspecified; E78.2 Mixed hyperlipidemia; J30.89 Other allergic rhinitis; E11.42 Type 2 diabetes mellitus with diabetic polyneuropathy; M79.10 Myalgia, unspecified site | CPT/HCPCS: 80053; 81000; 82043; 83036; 84443 ==

== ENCOUNTER 2022-12-26 12:05 | Outpatient (CLI) | payer MEDICARE, MEDICAID, SELFPAY ==
--- NOTE | 2022-12-26 12:26 | MM_ITS ---
WS: [email or web address] BILATERAL 3D TOMOSYNTHESIS DIGITAL DIAGNOSTIC MAMMOGRAPHY WITH CAD CLINICAL INFORMATION: LT BREAST LUMP HISTORY: Palpable lump LEFT breast COMPARISON: 2021 TECHNIQUE: Bilateral CC, MLO, and ML views. FINDINGS: The breasts are composed of heterogeneous fibroglandular density, which can limit the detection of sm all underlying mass lesions. Stone punctate and clustered calcifications unchanged compared to previous. Vascular calcification. P alpable marker LEFT breast. Normal underlying breast parenchyma. No focal lesions visualized in this area. Ultrasound is pending. ULTRASOUND BREAST LEFT TECHNIQUE: Ultrasound left breast focused area of concern. CLINICAL INFORMATION: LT BREAST LUMP FINDINGS: Ultrasound LEFT breast 6 clock position in the area of patient concern. Dense underlying parenchymal tissue. Dilated ducts in the area of concern compatible with ductal ectasia. This is similar in appea to 2021. No focal lesions. No other suspicious findings. MM/[place] [id number] IMPRESSION: BI-RADS: 2-Benign FOLLOW UP: 1 Year Follow-up Recommend return to annual screening mammography.
--- NOTE | 2022-12-26 12:52 | US_ITS ---
WS: [email or web address] BILATERAL 3D TOMOSYNTHESIS DIGITAL DIAGNOSTIC MAMMOGRAPHY WITH CAD CLINICAL INFORMATION: LT BREAST LUMP HISTORY: Palpable lump LEFT breast COMPARISON: 2021 TECHNIQUE: Bilateral CC, MLO, and ML views. FINDINGS: The breasts are composed of heterogeneous fibroglandular density, which can limit the detection of sm all underlying mass lesions. Stone punctate and clustered calcifications unchanged compared to previous. Vascular calcification. P alpable marker LEFT breast. Normal underlying breast parenchyma. No focal lesions visualized in this area. Ultrasound is pending. ULTRASOUND BREAST LEFT TECHNIQUE: Ultrasound left breast focused area of concern. CLINICAL INFORMATION: LT BREAST LUMP FINDINGS: Ultrasound LEFT breast 6 clock position in the area of patient concern. Dense underlying parenchymal tissue. Dilated ducts in the area of concern compatible with ductal ectasia. This is similar in appea laz to 2021. No focal lesions. No other suspicious findings. US/US breast LT limited* [id number] IMPRESSION: BI-RADS: 2-Benign FOLLOW UP: 1 Year Follow-up Recommend return to annual screening mammography.
== END 2022-12-26 12:06 | disposition home or self-care (01) ==
PROVIDERS: PCP Nurse Practitioner; Visit Provider Nurse Practitioner
DX: N63.25 Unspecified lump in the left breast, overlapping quadrants (principal)
CPT/HCPCS: 76642; 77062; G0279

== ENCOUNTER → 2023-02-08 15:11 | Outpatient (BNVA) | payer MEDICARE, MEDICAID, SELFPAY | PROVIDERS: PCP Nurse Practitioner; Visit Provider Nurse Practitioner | DX: E11.65 Type 2 diabetes mellitus with hyperglycemia (principal); Z79.4 Long term (current) use of insulin; E11.42 Type 2 diabetes mellitus with diabetic polyneuropathy; I10 Essential (primary) hypertension; M79.10 Myalgia, unspecified site; E03.8 Other specified hypothyroidism; J30.89 Other allergic rhinitis; E78.2 Mixed hyperlipidemia | CPT/HCPCS: 80053; 83036; 84443 ==

== ENCOUNTER → 2023-04-11 14:11 | Outpatient (BNVA) | payer MEDICARE, MEDICAID, SELFPAY | PROVIDERS: PCP Nurse Practitioner; Visit Provider Podiatrist Foot & Ankle Surgery | DX: E11.65 Type 2 diabetes mellitus with hyperglycemia; Z79.4 Long term (current) use of insulin; M77.51 Other enthesopathy of right foot and ankle; M21.621 Bunionette of right foot; M21.371 Foot drop, right foot; M21.622 Bunionette of left foot; M21.611 Bunion of right foot; M21.612 Bunion of left foot; E11.22 Type 2 diabetes mellitus with diabetic chronic kidney disease; I12.9 Hypertensive chronic kidney disease with stage 1 through stage 4 chronic kidney disease, or unspecified chronic kidney disease; N18.30 Chronic kidney disease, stage 3 unspecified | CPT/HCPCS: 99213 ==

== ENCOUNTER → 2023-05-04 14:46 | Outpatient (BNVA) | payer MEDICARE, MEDICAID, SELFPAY | PROVIDERS: PCP Nurse Practitioner; Visit Provider Nurse Practitioner | DX: E11.65 Type 2 diabetes mellitus with hyperglycemia (principal); Z79.4 Long term (current) use of insulin; J06.9 Acute upper respiratory infection, unspecified | CPT/HCPCS: 80053; 80061; 83036; 84443; 87400; 87426 ==

== ENCOUNTER → 2023-07-20 14:49 | Outpatient (BNVA) | payer MEDICARE, MEDICAID, SELFPAY | PROVIDERS: PCP Nurse Practitioner; Visit Provider Nurse Practitioner | DX: Z79.4 Long term (current) use of insulin; E11.9 Type 2 diabetes mellitus without complications | CPT/HCPCS: 80053; 80061; 81000; 82607; 83036; 84443 ==

== ENCOUNTER → 2023-07-26 13:09 | Outpatient (BNVA) | payer MEDICARE, MEDICAID, SELFPAY | PROVIDERS: PCP Nurse Practitioner; Visit Provider Podiatrist Foot & Ankle Surgery | DX: E11.65 Type 2 diabetes mellitus with hyperglycemia (principal); Z79.4 Long term (current) use of insulin; M21.371 Foot drop, right foot; L60.3 Nail dystrophy | CPT/HCPCS: 11721 ==

== ENCOUNTER → 2023-07-31 12:56 | Outpatient (BNVA) | payer MEDICARE, MEDICAID, SELFPAY | PROVIDERS: PCP Nurse Practitioner; Visit Provider Internal Medicine | DX: I12.9 Hypertensive chronic kidney disease with stage 1 through stage 4 chronic kidney disease, or unspecified chronic kidney disease (principal); E11.22 Type 2 diabetes mellitus with diabetic chronic kidney disease; N18.4 Chronic kidney disease, stage 4 (severe); R07.9 Chest pain, unspecified; E11.65 Type 2 diabetes mellitus with hyperglycemia; Z79.4 Long term (current) use of insulin; G47.30 Sleep apnea, unspecified; E78.2 Mixed hyperlipidemia | CPT/HCPCS: 99214 ==

== ENCOUNTER → 2023-08-30 13:52 | Outpatient (BNVA) | payer OTHER, MEDICAID, SELFPAY | PROVIDERS: PCP Nurse Practitioner; Referring Provider Nurse Practitioner; Visit Provider Nurse Practitioner Family | DX: L30.4 Erythema intertrigo (principal); L82.0 Inflamed seborrheic keratosis; L57.8 Other skin changes due to chronic exposure to nonionizing radiation; L81.4 Other melanin hyperpigmentation; D22.62 Melanocytic nevi of left upper limb, including shoulder | CPT/HCPCS: 17110; 99204 ==

== ENCOUNTER → 2023-10-05 14:40 | Outpatient (BNVA) | payer MEDICARE, MEDICAID, SELFPAY | PROVIDERS: PCP Nurse Practitioner; Visit Provider Nurse Practitioner | DX: E11.65 Type 2 diabetes mellitus with hyperglycemia (principal); I10 Essential (primary) hypertension; E55.9 Vitamin D deficiency, unspecified | CPT/HCPCS: 80053; 80061; 81000; 82306; 82607; 83036; 84443 ==

== ENCOUNTER → 2023-10-25 14:24 | Outpatient (BNVA) | payer MEDICARE, MEDICAID, SELFPAY | PROVIDERS: PCP Nurse Practitioner; Visit Provider Podiatrist Foot & Ankle Surgery | DX: E11.8 Type 2 diabetes mellitus with unspecified complications (principal); E11.65 Type 2 diabetes mellitus with hyperglycemia; Z79.4 Long term (current) use of insulin; M21.371 Foot drop, right foot | CPT/HCPCS: 99213 ==

== ENCOUNTER → 2024-01-24 14:15 | Outpatient (BNVA) | payer MEDICARE, MEDICAID, SELFPAY | PROVIDERS: PCP Family Medicine; Visit Provider Podiatrist Foot & Ankle Surgery | DX: E11.65 Type 2 diabetes mellitus with hyperglycemia (principal); Z79.4 Long term (current) use of insulin; M21.371 Foot drop, right foot; L60.3 Nail dystrophy | CPT/HCPCS: 11721; 99213 ==

== ENCOUNTER → 2024-06-26 14:02 | Outpatient (BNVA) | payer MEDICARE, SELFPAY | PROVIDERS: PCP Clinical Nurse Specialist Adult Health; Visit Provider Clinical Nurse Specialist Adult Health | DX: E78.2 Mixed hyperlipidemia (principal); E03.8 Other specified hypothyroidism; E11.42 Type 2 diabetes mellitus with diabetic polyneuropathy; E11.65 Type 2 diabetes mellitus with hyperglycemia; Z79.4 Long term (current) use of insulin; I10 Essential (primary) hypertension; N18.4 Chronic kidney disease, stage 4 (severe); R19.7 Diarrhea, unspecified; R13.10 Dysphagia, unspecified | CPT/HCPCS: 80053; 83036; 84443; 85025 ==

== ENCOUNTER → 2024-07-29 13:09 | Outpatient (BNVA) | payer MEDICARE, MEDICAID, SELFPAY | PROVIDERS: PCP Clinical Nurse Specialist Adult Health; Visit Provider Internal Medicine | DX: I12.9 Hypertensive chronic kidney disease with stage 1 through stage 4 chronic kidney disease, or unspecified chronic kidney disease (principal); E11.22 Type 2 diabetes mellitus with diabetic chronic kidney disease; N18.4 Chronic kidney disease, stage 4 (severe); R07.9 Chest pain, unspecified; R06.02 Shortness of breath; E11.65 Type 2 diabetes mellitus with hyperglycemia; Z79.4 Long term (current) use of insulin; G47.30 Sleep apnea, unspecified; E78.2 Mixed hyperlipidemia; E78.5 Hyperlipidemia, unspecified | CPT/HCPCS: 99213 ==

== ENCOUNTER 2024-09-05 10:22 | Outpatient (CLI) | payer MEDICARE, MEDICAID, SELFPAY ==
--- NOTE | 2024-09-05 11:00 | FL_ITS ---
WS: [email or web address] Exam: FL barium swallow modifd [id number] Date/Time of Exam: 09/05/2024 10:26 AM Reason For Exam: R13.10 - Dysphagia, unspecified Fluoroscopy time: 3min [id number] minutes # of spot films: 0 Modified barium swallow test was performed in conjunction with the speech therapy service. Oropharyngeal phase of swallowing was normal. The patient tolerated all consistencies of barium mixture foodstuffs without aspiration or penetration. The patient swallowed a barium tablet without difficulty. FL/FL barium swallow modifd [id number] IMPRESSION: 1. No aspiration or penetration identified. A separate report and recommendations will follow from the speech therapy servi ce.
== END 2024-09-05 10:23 | disposition home or self-care (01) ==
PROVIDERS: PCP Clinical Nurse Specialist Adult Health; Visit Provider Clinical Nurse Specialist Adult Health
DX: R13.10 Dysphagia, unspecified (principal)
CPT/HCPCS: 74230; 92611

== ENCOUNTER → 2024-09-06 10:57 | Outpatient (BNVA) | payer MEDICARE, MEDICAID, SELFPAY | PROVIDERS: PCP Clinical Nurse Specialist Adult Health; Visit Provider Nurse Practitioner Family | DX: L57.8 Other skin changes due to chronic exposure to nonionizing radiation (principal); L81.4 Other melanin hyperpigmentation; D22.62 Melanocytic nevi of left upper limb, including shoulder; Z80.8 Family history of malignant neoplasm of other organs or systems; L82.0 Inflamed seborrheic keratosis; R20.8 Other disturbances of skin sensation; L29.89 Other pruritus; Z78.9 Other specified health status; L53.8 Other specified erythematous conditions; L57.0 Actinic keratosis | CPT/HCPCS: 17000; 17110; 99213 ==

== ENCOUNTER → 2024-09-11 13:57 | Outpatient (BNVA) | payer MEDICARE, MEDICAID, SELFPAY | PROVIDERS: PCP Clinical Nurse Specialist Adult Health; Visit Provider Podiatrist Foot & Ankle Surgery | DX: E11.65 Type 2 diabetes mellitus with hyperglycemia (principal); Z79.4 Long term (current) use of insulin; M21.371 Foot drop, right foot; L60.3 Nail dystrophy | CPT/HCPCS: 99213 ==

== ENCOUNTER → 2024-10-23 12:35 | Outpatient (BNVA) | payer MEDICARE, OTHER, SELFPAY | PROVIDERS: PCP Clinical Nurse Specialist Adult Health; Visit Provider Clinical Nurse Specialist Adult Health | DX: E11.9 Type 2 diabetes mellitus without complications (principal); E78.2 Mixed hyperlipidemia; E03.8 Other specified hypothyroidism; E11.8 Type 2 diabetes mellitus with unspecified complications; N18.4 Chronic kidney disease, stage 4 (severe) | CPT/HCPCS: 80053; 80061; 82043; 82607; 83036; 84443; 85025 ==

== ENCOUNTER 2024-12-06 13:01 | Outpatient (CLI) | payer MEDICARE, MEDICAID, SELFPAY ==
--- NOTE | 2024-12-06 13:00 | MM_ITS ---
WS: [email or web address] BILATERAL 3D TOMOSYNTHESIS DIGITAL SCREENING MAMMOGRAPHY WITH CAD CLINICAL INFORMATION: Z12.39 - Encounter for other screening for malignant neop... HISTORY: Screening mammogram. No current complaints. COMPARISON: 2022 TECHNIQUE: Bilateral CC and MLO views. FINDINGS: The breasts are composed of heterogeneous fibroglandular density tissue, which can limit the detection of small underlying mass lesions. No suspicious mass, asymmetry, calcifications, or architectural distortion. No evidence of malignancy. Incidental punctate calcifications. Vascular calcification. MM/MM [facility] tomosynthesis [id number] IMPRESSION: DENSITY: The breasts are heterogeneously dense, which may obscure small masses. BI-RADS: 2 - Benign FOLLOW UP: 1 Year Follow-up Recommend return to annual screening mammography.
--- NOTE | 2024-12-06 13:30 | XR_ITS ---
WS: [email or web address] SCREENING DEXA SCAN [employer] CLINICAL INFORMATION: M81.0 - Age-related osteoporosis without current patholog... COMPARISON: None. FINDINGS: The LEFT forearm bone mineral density measures 0.64. This corresponds to a T score score of -2.7 and Z score of -0.5. Left femoral neck bone mineral density measures 0.705 g/cm2. This corresponds to a T score of -2.4 and Z score of -1.1. Right femoral neck bone mineral density measures 0.751 g/cm2. This corresponds to a T score -2.0of and Z score of -0.7. Mean femoral neck bone mineral density measures 0.728 g/cm2. This corresponds to a T score of -2.2 and Z score of -0.9. XR/XR DEXA axial skeleton* [id number] IMPRESSION: Osteoporosis LEFT forearm. Osteopenia femoral necks. Patient's FRAX calculated 10 year probability for major osteoporotic fracture i s 17.0% and osteoporotic hip fracture is 5.5%.
== END 2024-12-06 13:02 | disposition home or self-care (01) ==
LOC: RAD 13:03
PROVIDERS: PCP Clinical Nurse Specialist Adult Health; Visit Provider Clinical Nurse Specialist Adult Health
DX: Z12.31 Encounter for screening mammogram for malignant neoplasm of breast (principal); M81.0 Age-related osteoporosis without current pathological fracture; R92.333 Mammographic heterogeneous density, bilateral breasts
CPT/HCPCS: 77063; 77067; 77080

== ENCOUNTER → 2025-01-09 13:38 | Outpatient (BNVA) | payer MEDICARE, MEDICAID, SELFPAY | PROVIDERS: PCP Clinical Nurse Specialist Adult Health; Visit Provider Clinical Nurse Specialist Adult Health | DX: E11.9 Type 2 diabetes mellitus without complications (principal) | CPT/HCPCS: 80053; 80061; 82607; 83036; 85025 ==

== ENCOUNTER → 2025-02-14 12:55 | Outpatient (BNVA) | payer MEDICARE, MEDICAID, OTHER, SELFPAY | PROVIDERS: PCP Clinical Nurse Specialist Adult Health; Visit Provider Internal Medicine | DX: E11.65 Type 2 diabetes mellitus with hyperglycemia (principal); Z79.4 Long term (current) use of insulin | CPT/HCPCS: 36415; 84439; 84443 ==

== ENCOUNTER → 2025-03-18 13:10 | Outpatient (BNVA) | payer MEDICARE, MEDICAID, SELFPAY | PROVIDERS: PCP Clinical Nurse Specialist Adult Health; Visit Provider Podiatrist Foot & Ankle Surgery | DX: E11.8 Type 2 diabetes mellitus with unspecified complications (principal); E11.65 Type 2 diabetes mellitus with hyperglycemia; Z79.4 Long term (current) use of insulin; M21.371 Foot drop, right foot | CPT/HCPCS: 99213 ==